=== PATIENT | male | born 1965 | race Caucasian/White ===

== ENCOUNTER 2017-05-05 10:15 | Inpatient (IN) | payer OTHER ==
[~2017-05-05] VITALS: Ht 188 cm; Wt 89.0 kg
[~2017-05-05 10:15] MED LIST: KLONOPIN 1MG TAB1 MG PO; ZOLOFT 100 MG100 MG PO
--- NOTE | 2017-05-05 10:32 | ED PSYCHIATRIC COMPLAINT ---
History of Present Illness General Chief Complaint: Psychiatric Related Complaint Stated Complaint: BIBA SI Source: patient, EMS Exam Limitations: no limitations Vital Signs & Intake/Output Vital Signs & Intake/Output Vital Signs Date Time Temp Pulse Resp B/P B/P Pulse O2 O2 Flow FiO2 Mean Ox Delivery Rate 05/06 1101 98.7 68 20 132/86 97 05/06 0840 98.8 90 20 134/92 97 05/06 0650 Room Air 05/06 0626 98.3 78 16 142/67 97 Room Air 05/06 0144 98.0 70 20 138/62 97 Room Air 05/06 0037 98.0 72 20 128/78 98 Room Air 05/05 2232 98.9 70 16 106/74 97 Room Air 05/05 1944 98.8 74 20 108/50 96 Room Air 05/05 1640 Room Air 05/05 1630 99.4 83 17 122/69 96 Room Air 05/05 1407 97.8 70 18 156/88 97 Room Air ED Intake and Output 05/06 0000 05/05 1200 Intake Total Output Total Balance Patient 205 lb Weight Weight Reported by Patient Measurement Method Reconcile Medications Sertraline HCl 50 MG TABLET 50 MG PO DAILY DEPRESSION (Reported) Triage Note: 52 Y/O MALE BIBA FOR EVAL OF ETOH. PER EMS, PT IS VOLUNTARY. PT ARRIVES A/O X 4, SPEAKING CLEARLY WITH NO DISTRESS OR DEFICITS NOTED. PT STATES HE WAS "AT [place] FOR THE FIRST TIME AND I HAD 6 BEERS THIS MORNING WHICH IS TOO MUCH FOR ME.". PT ADMITS "CHENCHO BEEN DEPRESSED". DENIES CURRENT SI BUT STATES HE HAS HAD SI THOUGHTS "IN THE RECENT PAST". DENIES HI. CALM AND COOPERATIVE ON ARRIVAL DENIES PHYSICAL COMPLAINTS. DENIES HX SEIZURES. PA STUDENT OVER TO EVAL SECURITY PAGED FOR WANDING. Triage Nurses Notes Reviewed? yes Onset: Gradual Duration: day(s): Timing: recent history Severity: moderate HPI: 52YO male with hx of depression BIBA to ED complaining of suicidal ideation beginning after getting out of [facility]. Patient states depression has been worsening, intermittent SI recently with plan of crashing his car. Patient recently got out of residential following 10 months sentence. Patient having difficulty adjusting to life outside of residential, states he wants to go back to [facility] however knows that he truely does not want to be incarcerated. Drank 6 beers prior to his visit with parol officer this morning, prior to that he has not had any alcohol for 10 months. Patient was a former alcoholic, hx of hospitalizations for alcohol withdrawal however no seizures or DTs that he is aware of. The patient denies headache, nausea, vomiting, AH/VH, HI, drug use. Patient takes Zoloft for depression, has been taking this medication as prescribed. (Christina Garcia) Allergies Coded Allergies: NO KNOWN ALLERGIES (05/05/17) (Enrique EARLY,Ayala) Past History Travel History Traveled to [place] past 21 day No Medical History Any Pertinent Medical History? 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 No (Christina Garcia) Review of Systems Review of Systems Constitutional: Reports: no symptoms. EENTM: Reports: no symptoms. Respiratory: Reports: no symptoms. Cardiovascular: Reports: no symptoms. GI: Reports: no symptoms. Genitourinary: Reports: no symptoms. Musculoskeletal: Reports: no symptoms. Skin: Reports: no symptoms. Neurological/Psychological: Reports: see HPI. Hematologic/Endocrine: Reports: no symptoms. Immunologic/Allergic: Reports: no symptoms. All Other Systems: Reviewed and Negative (Christina Garcia) Physical Exam Physical Exam General Appearance: well developed/nourished, no apparent distress, alert, awake Head: atraumatic, normal appearance Eyes: Bilateral: normal appearance. Ears, Nose, Throat: hearing grossly normal Neck: normal inspection, supple, full range of motion Respiratory: normal breath sounds, no respiratory distress, lungs clear Cardiovascular: regular rate/rhythm Gastrointestinal: normal bowel sounds, soft, non-tender, no organomegaly Extremities: normal range of motion Neurological/Psychiatric: awake, agitated, alert, normal mood/affect, calm Appearance/Memory/Insight: appropriate appearance, appropriate insight Behavoir/Eye Contact/Speech: cooperative, normal speech, good eye contact Thoughts/Hallucinations: normal thought pattern, no apparent hallucination Skin: intact, normal color, warm/dry SAD PERSONS SAD PERSONS Response Value Male Sex? yes 1 Age <19 or >45 years? yes 1 Depression/Hopelessness? yes 2 Excessive Ethanol/Drug Use? yes 1 Single//? yes 1 Social Support? has support 0 Stated Future Intent? yes 2 Total 8 SAD PERSONS Done? yes (Dot RAMÍREZ,Christina Buchanan) Progress Differential Diagnosis: drug intoxication, drug overdose, drug withdrawal, electrolyte abnormality, depression, suicidal ideation Plan of Care: Orders Procedure Date/time Status Regular Diet 05/06 D Active Lab Add-on Test 05/06 1150 Active Patient Data - inpatient psych 05/06 1144 Active Admit to inpatient psych 05/06 1144 Active Vital Signs 05/06 UNK Active Nursing Misc 05/06 UNK Active CIWA 05/06 UNK Active Alternative Nursing Therapy 05/06 UNK Active Activity/Ambulation 05/06 UNK Active TSH REFLEX 05/05 1053 Complete LIPID PANEL 05/05 1053 Complete GLYCOSYLATED HGB 05/05 1053 Complete Current Medications Sig/Bess Start time Last Medication Dose Stop Time Status Admin Benztropine Mesylate 1 MG Q6P PRN 05/06 1200 UNVr (Cogentin 1 MG Tablet) Benztropine Mesylate 1 MG Q6P PRN 05/06 1200 UNVr (Cogentin) Gabapentin 300 MG Q6P PRN 05/06 1200 UNVr (Neurontin) Haloperidol 5 MG Q6P PRN 05/06 1200 UNVr (Haldol) Haloperidol 5 MG Q6P PRN 05/06 1200 UNVr (Haldol) Lorazepam 2 MG Q6P PRN 05/06 1200 UNVr (Ativan) Lorazepam 2 MG Q2P PRN 05/06 1200 UNVr (Ativan) Lorazepam 1 MG Q2P PRN 05/06 1200 UNVr (Ativan) Folic Acid 1 MG DAILY 05/06 1147 UNVr (Folic Acid) 05/08 1001 Multivitamins 1 TAB DAILY 05/06 1147 UNVr (Theragran Vitamins) Thiamine HCl 100 MG DAILY 05/06 1147 UNVr (Vitamin B1) 05/08 1001 Acetaminophen 650 MG Q6P PRN 05/06 1145 UNVr (Tylenol) Al Hydroxide/Mg 30 ML Q4-6 PRN PRN 05/06 1145 UNVr Hydroxide (Maalox Plus) Magnesium Hydroxide 30 ML AT BEDTIME PRN 05/06 1145 UNVr (Milk Of Magnesia) Trazodone HCl 50 MG AT BEDTIME NEED.. 05/06 1145 UNVr (Desyrel) Sertraline HCl 50 MG DAILY 05/06 1000 UNVr 05/06 (Zoloft) 1007 The patient was started on Ativan 1mg PO per crisis team for anxiety. Patient signed out to Dr. Nunez pending bed search tomorrow morning. (Christina Garcia) 7:12 PM PATIENT TO REMAIN FOR OVERNIGHT PSYCH BEDSEARCH. TRAZADONE ORDERED. (Ayala Nunez MD) Hand-Off Endorsed To: Aayla Nunez MD Endorsed Time: 1946 Pending: other (bed search) (Christina Garcia) Hand-Off Endorsed To: Reji Reeves MD Endorsed Time: 2299 Pending: other (CRISIS BED SEARCH) (Ayala Nunez MD) Hand-Off Endorsed To: Hunter Be MD (Reji Reeves MD) Comments: 05/06/2017 9:03:19 AM patient signed out to me by Dr. 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 Patient is currently resting comfortably. ([place] EARLY,Hunter Figueroa) Departure Departure Disposition: STILL A PATIENT Condition: Stable Clinical Impression Primary Impression: Suicidal ideation Secondary Impressions: Alcohol abuse Depression Qualifiers: Depression Type: unspecified Qualified Code: F32.9 - Major depressive disorder, single episode, unspecified Referrals: Vivi Neumann MD (PCP/Family) Departure Forms: Customer Survey General Discharge Information (Christina Garcia) PA/PATIENT FINANCIAL COUNSELOR Co-Sign Statement Statement: ED Attending supervision documentation- [X] I saw and evaluated the patient. I have also reviewed all the pertinent lab results and diagnostic results. I agree with the findings and the plan of care as documented in the PA's/PATIENT FINANCIAL COUNSELOR's documentation. [X] I have reviewed the ED Record and agree with the PA's/PATIENT FINANCIAL COUNSELOR's documentation. [] Additions or exceptions (if any) to the PAs/PATIENT FINANCIAL COUNSELOR's note and plan are summarized below: [] (Ayala Nunez MD) PA/PATIENT FINANCIAL COUNSELOR Co-Sign Statement Statement: ED Attending supervision documentation- [] I saw and evaluated the patient. I have also reviewed all the pertinent lab results and diagnostic results. I agree with the findings and the plan of care as documented in the PA's/PATIENT FINANCIAL COUNSELOR's documentation. [x] I have reviewed the ED Record and agree with the PA's/PATIENT FINANCIAL COUNSELOR's documentation. [] Additions or exceptions (if any) to the PAs/PATIENT FINANCIAL COUNSELOR's note and plan are summarized below: [] (Leandro EARLY,Reji Luna)
[2017-05-05 11:08] LABS: ABSOLUTE BASOPHIL COUNT 0 /CUMM (0.0-0.2); ABSOLUTE EOSINOPHIL COUNT 0 /CUMM (0.0-0.7); ABSOLUTE GRANULOCYTE CT 3.6 /CUMM (1.4-6.5); ABSOLUTE LYMPH COUNT 1.4 /CUMM (1.2-3.4); ABSOLUTE MONOCYTE COUNT 0.6 /CUMM (0.10-0.60); BASOPHIL % 0.5 % (0.0-2.0); EOSINOPHIL % 0.2 % (0-5); HEMATOCRIT 38.6 % (42-52); MEAN CORPUSCULAR HGB 30.3 PG (27.0-31.0); MEAN CORPUSCULAR HGB CONC 33.7 G/DL (33.0-37.0); MEAN PLATELET VOLUME 7.3 FL (7.4-10.4); PLATELET COUNT 382 /CUMM (130-400); RBC DISTRIBUTION WIDTH 13.9 % (11.5-14.5); RED BLOOD CELL CT 4.29 /CUMM (4.70-6.10); WHITE BLOOD CELL COUNT 5.6 /CUMM (4.8-10.8)
--- NOTE | 2017-05-05 15:40 | ED PSY CRISIS COLLATERAL NOTE ---
Collateral Note Collateral Note Family/Inform/Ronda Contacts: Crisis attempted to make collateral phone contacts to patient's next of kin: Kristy Courtney, sister, at [phone]. Unable to contact Kristy. Phone goes straight to voicemail. The voicemail outgoing message is for the patient. It appears the patient and the sister share 1 phone number. Attempted to reach Mile Miller (friend) at [phone] but was unable to leave a message as the voicemail box is full.
[2017-05-05] MEDS ORDERED: SERTRALINE HCL50 MG PO (15:46)
--- NOTE | 2017-05-05 18:29 | ED PSYCH CRISIS CONSULTATION ---
See Addendum Crisis Consult Basic Assessment Date of Consult: 05/05/17 Responsible Person/Accompanied By: self/biba Insurance Authorization: Insurance #1: Insurance name: DAVID CARR Phone number: Policy number: [id number] Group number: Authorization number: ED Provider: Patient's ED Provider: Christina Garcia Primary Care Physician: Patient's PCP: Vivi Neumann MD PCP's Phone Number: Current Psychiatrist[facility] prescribed zoloft 50 mgs on Thursday Chief Complaint: Psychiatric Related Complaint Patient's Quote: I told my boat officer I want to kill myself Present Illness: pt is a 52 yo male biba to [place] ED this morning for depression and SI. Pt reports he had an intake with his boat officer this morning and drank 4-6 beers prior with intent that boat officer would violate him and send him back to [facility]. Pt reports he expressed SI to his boat officer so 911 was called. Pt reports he was released from incarceration on Mar 24 and was residing with his sister on transitional supervision until completion on May 01 when he was able to return to his apartment. Pt had been incarcerated for 10 months due to charges of harrassment, threatening, stalking and breach of peace. Pt reports prior incarceration for 4 months in 2004 for DUI. Pt reports hx of problem etoh use and detoxed in 2004. Pt reports sobriety [phone] but has relapsed since. pt reports today was his first etoh use since recent incarceration. Pt denies substance use. Pt reports no prior mental health tx hx. Pt reports since release in march he has been feeling depressed, lethargic at times confused, and most recently suicidal thoughts to drive his car into an embankment. Pt reports he was evaluated Thursday at [place] [facility] for depression but released with a plan to follow up with [facility] for outpatient tx services. Pt reports he and his sister for an urgent care clinic on the [facility] this and he was prescribed 50 mg of Zoloft which he states he started on Thursday. Pt rates his depression 10/27 and has suicidal thoughts but no current intent. Pt reports working 10 yrs for [employer] and has returned to work but has called out a few times recently because he feels unmotivated to get up. His sister reports on those days he has stayed asleep until early afternoon. Sister reports pt has recently been repeatedly stating "I can't go on"; "I can't do this anymore". Pt presents as alert, cooperative, soft spoken and OX3. Pt denies HI, AH/VH. Case reviewed with Dr Mcdonough with plan for pt to be held over night for further observation and likely bed search for inpatient psychiatric treatment in the morning. Plan reviewed with pt and he is in agreement. Patient's Address: [address] [place] [address] [place] [address] Other Phone Number: Who Do You Live With? Patient/Self Family/Informants Interviewed: collateral provided by pt sister Berna [phone]. She reports pt is depressed, made suicidal statements recently and is worried he has relapsed with etoh. She advocates for inpatient psychiatric admission. Allergies - Coded Allergies: NO KNOWN ALLERGIES (05/05/17) Current Medications - Scheduled Medications Sertraline HCl 50 MG TABLET 50 MG PO DAILY DEPRESSION #100 (Reported) Entered as Reported by Rebecca Lance on 05/05/17 1546 Laboratory Results: Laboratory Tests 05/05/17 1053: Anion Gap 17 H, Estimated GFR > 60, BUN/Creatinine Ratio 12.9, Glucose 96, Calcium 9.2, Total Bilirubin 0.3, AST 14 L, ALT 24, Alkaline Phosphatase 79, Total Protein 6.7, Albumin 4.0, Globulin 2.7, Albumin/Globulin Ratio 1.5, CBC w Diff NO MAN DIFF REQ, RBC 4.29 L, MCV 90.0, MCH 30.3, RDW 13.9, MPV 7.3 L, Gran % 64.0, Lymphocytes % 24.1, Monocytes % 11.2 H, Eosinophils % 0.2, Basophils % 0.5, Absolute Granulocytes 3.6, Absolute Lymphocytes 1.4, Absolute Monocytes 0.6, Absolute Eosinophils 0, Absolute Basophils 0, PUBS MCHC 33.7, Serum Alcohol 83.0 05/05/17 1048: Urine Opiates Screen < 100.00, Methadone Screen < 40, Barbiturate Screen < 60, Ur Phencyclidine Scrn < 6.00, Amphetamines Screen < 100, U Benzodiazepines Scrn < 85, Urine Cocaine Screen < 50, Urine Cannabis Screen < 5.00 Past History Past Medical History Neurological: NONE EENT: NONE Cardiovascular: NONE Respiratory: NONE Gastrointestinal: NONE Hepatic: NONE Renal: NONE Musculoskeletal: NONE Psychiatric: alcohol dependence, depression Endocrine: NONE Blood Disorders: NONE Cancer(s): NONE 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 Maintained etoh sobriety Psychiatric Treatment History Psych Treatment Psychiatric Treatment No Inpatient Treatment No Outpatient Treatment No Substance Use/Abuse History Drug Use/Abuse Substances Used/Abused Yes Substance Used/Abused Alcohol Last Used this morning How much used/taken 4-6 beers Substance Abuse Treatment Substance Abuse Treatment Past Substance Abuse TX Yes Inpatient Treatment Yes Outpatient Treatment No Reason for Treatment etoh detox sober 10 yrs.relapse 2014 Dates of Treatment 2004? Response to Treatment 10 yrs sober/AA relapse 2014 Comments: pt reports 4-6 beers this morning by appt with boat officer. Pt reports this was his first use since release from incarceration Mar 2017. He denies substance use. Current Mental Status Mental Status Orientation: Person, Place, Situation Affect: Flat, Hopeless, Sad Speech: WNL Neuro-vegetative: Anhedonia, Concentration Poor, Energy Decreased, Helpless, Hypersomnia, Loss of Interest Appearance Appearance- Dress/Hygiene: blue scrubs, groomed, good eye contact Behaviors Thought Process: WNL Thought Content: WNL Memory: WNL Insight: Fair SI/HI Risk Assessment Past Suicidal Ideation/Attempts Yes Current Suicidal Ideation/Att Yes Past Homicidal Ideation/Att: No Current Homicidal Ideation/Attempts No Degree of Intent: Thoughts/No Intent Danger To: Self Gravely Disabled: Poor Impulse Control, Poor Judgment Risk Factors: high anxiety/distress, SA/MH hospitalized, substance abuse, poor impulse control, lives alone, male Lethality Ratin PTSD Checklist PTSD Done? patient declined ED Management Sitter: Yes Restraints: No DSM5/PS Stressors/Medical Prob Diagnosis' (DSM 5, Stressors, Medical): Unspecified depression F32.9 Alcohol Use d/o F10.20 recent release from incarceration probation Current GAF: 25 Comments: Pt reports depression and SI with no plan past month since release from incarceration. Departure Disposition Psych Medical Clearance Date: 05/05/17 Medically Cleared at: 1630 Time Started: 1630 Time Ended: 171 Date Disposition Established: 05/05/17 Time Disposition Established: 1899 Plan for Disposition - Modality: Bed Search Rationale for Disposition: pt meet criteria for inpatient psychiatric treatment for mood stabilization and medication assessment. Pt will be a bed search due to no [facility] bed availability Referrals Vivi Neumann MD (PCP/Family)
[2017-05-06 12:43] VITALS: BP 132/86
[2017-05-06 14:41] VITALS: BP 134/77
[2017-05-06 18:21] VITALS: BP 140/70
--- NOTE | 2017-05-06 18:57 | IP CRISIS DIAG ASSESS PSYCH ---
Diagnostic Assessment Basic Assessment Insurance Authorization: Insurance #1: Insurance name: DAVID Deshpande [employer] Phone number: Policy number: [id number] Group number: Authorization number: [id number] Primary Care Physician: Patient's PCP: Vivi Neumann MD PCP's Phone Number: Patient's Quote: I told my home school liaison officer I want to kill myself Present Illness: pt is a 52 yo male biba to [place] ED this morning for depression and SI. Pt reports he had an intake with his home school liaison officer this morning and drank 4-6 beers prior with intent that home school liaison officer would violate him and send him back to [facility]. Pt reports he expressed SI to his home school liaison officer so 911 was called. Pt reports he was released from incarceration on Mar 24 and was residing with his sister on transitional supervision until completion on May 01 when he was able to return to his apartment. Pt had been incarcerated for 10 months due to charges of harrassment, threatening, stalking and breach of peace. Pt reports prior incarceration for 4 months in 2004 for DUI. Pt reports hx of problem etoh use and detoxed in 2004. Pt reports sobriety [phone] but has relapsed since. pt reports today was his first etoh use since recent incarceration. Pt denies substance use. Pt reports no prior mental health tx hx. Pt reports since release in march he has been feeling depressed, lethargic at times confused, and most recently suicidal thoughts to drive his car into an embankment. Pt reports he was evaluated Thursday at [place] ED for depression but released with a plan to follow up with [facility] for outpatient tx services. Pt reports he and his sister for an urgent care clinic on the [facility] this weekend and he was prescribed 50 mg of Zoloft which he states he started on Thursday. Pt rates his depression 10/27 and has suicidal thoughts but no current intent. Pt reports working 10 yrs for [employer] and has returned to work but has called out a few times recently because he feels unmotivated to get up. His sister reports on those days he has stayed asleep until early afternoon. Sister reports pt has recently been repeatedly stating "I can't go on"; "I can't do this anymore". Pt presents as alert, cooperative, soft spoken and OX3. Pt denies HI, AH/VH. Case reviewed with Dr Mcdonough with plan for pt to be held over night for further observation and likely bed search for inpatient psychiatric treatment in the morning. Plan reviewed with pt and he is in agreement. Patient's Address: [address] [place] [address] [place], [place] [id number] Other Phone Number: Who Do You Live With? Patient/Self Feel Safe Where You Live? Yes Feel Safe in Your Relationship Yes Marital Status: Do You Have Children? Yes Ages? 16 Primary Language? Persian Language(s) Spoken At Home: Persian Family/Informants Interviewed: collateral provided by pt sister Berna [phone]. She reports pt is depressed, made suicidal statements recently and is worried he has relapsed with etoh. She advocates for inpatient psychiatric admission. Allergies - Coded Allergies: NO KNOWN ALLERGIES (05/05/17) Current Medications - Scheduled Medications Sertraline HCl 50 MG TABLET 50 MG PO DAILY DEPRESSION #100 (Reported) Entered as Reported by Rebecca Lance on 05/05/17 5359 Consequences of Psych Med Use: pt has recently begun Zoloft 50mg Toxicology Screen Completed? Yes Results: positive Symptoms of Use: etoh Past History Past Surgical History Surgical History R HIP REPLACEMENT Abuse/Trauma History Trauma History/Current Trauma: Denies Psychosocial History Strengths/Capabilities: has worked for [employer] past 11yrs. Maintained etoh sobriety -2014 Psychiatric Treatment History Psych Treatment Psychiatric Treatment No Inpatient Treatment No Outpatient Treatment No Risk Factors: high anxiety/distress, SA/MH hospitalized, substance abuse, poor impulse control, lives alone, male Substance Use/Abuse History Drug Use/Abuse minimum 12mo Hx Substances Used/Abused Yes Substance Used/Abused Alcohol Last Used this morning How much used/taken 4-6 beers Substance Abuse Treatment Substance Abuse Treatment Past Substance Abuse TX Yes Inpatient Treatment Yes Outpatient Treatment No Reason for Treatment etoh detox sober 10 yrs.relapse 2014 Dates of Treatment 2004? Response to Treatment 10 yrs sober/AA relapse 2014 Education History Highest Level of Education: some college Preferred Learning Style: visual, auditory, experiential Current Mental Status Mental Status Orientation: Person, Place, Situation Affect: Flat, Hopeless, Sad Speech: WNL Neuro-vegetative: Anhedonia, Concentration Poor, Energy Decreased, Helpless, Hypersomnia, Loss of Interest Appearance Appearance- Dress/Hygiene: blue scrubs, groomed, good eye contact Behaviors Thought Process: WNL Thought Content: WNL Memory: WNL Insight: Fair SI/HI Risk Assessment - Minimum 6mo History- Past Suicidal Ideation/Attempts Yes Current Suicidal Ideation/Att Yes Past Homicidal Ideation/Att: No Current Homicidal Ideation/Attempts No Degree of Intent: Thoughts/No Intent Danger To: Self Gravely Disabled: Poor Impulse Control, Poor Judgment Risk Factors: high anxiety/distress, SA/MH hospitalized, substance abuse, poor impulse control, lives alone, male Lethality Ratin Needs/Init TX Plan/Goals: Psychiatric Evaluation Medication Assessment Individual, group and family tx coordinated discharge planning AUDIT-C Questionnaire: AUDIT-C Questionnaire: Response Value ETOH use in the past year 2-4 times/week 3 # drinks typical/day 7-9 3 6 or > drinks per occasion Weekly 3 Total 9 DSM5/PS Stressors/Medical Prob Diagnosis' (DSM 5, Stressors, Medical): Unspecified depression F32.9 Alcohol Use d/o F10.20 recent release from incarceration probation Current GAF: 25 Comments: Pt reports depression and SI with no plan past month since release from incarceration.
[2017-05-06 20:36] VITALS: BP 129/88
[2017-05-06] MEDS ORDERED: TRAZODONE HCL50 M1 PO (22:22)
[2017-05-06 23:33] VITALS: BP 107/65
[2017-05-07] VITALS (9 sets, daily range): BP systolic 115–144; BP diastolic 73–90
--- NOTE | 2017-05-07 12:51 | History & Physical ---
General Information and HPI MD Statement: I have seen and personally examined DAV TOVAR and documented this H&P. The patient is a 52 year old M who presented with a patient stated chief complaint of "I told my immigration services officer I to kill myself". Source of Information: patient Exam Limitations: no limitations History of Present Illness: 52-year-old white male admits to be depressed, does suicidal ideations began to getting out of [facility], worsening of his depression has been intermittent and he was in [facility] for about 10 months and he was supposed to see his mechanical engineering officer took 6 beers before the visit. After he told the mechanical engineering officer how he felt he was sent to the hospital for evaluation and he is taking the Zoloft as prescribed. Allergies/Medications Allergies: Coded Allergies: NO KNOWN ALLERGIES (05/05/17) Home Med list Sertraline HCl 50 MG TABLET 50 MG PO DAILY DEPRESSION (Reported) Trazodone HCl 50 MG TABLET 50 MG PO INSOMNIA (Reported) Compliance With Home Meds: GOOD Past History Travel History Traveled to [place] past 21 day No Medical History Neurological: NONE EENT: NONE Cardiovascular: NONE Respiratory: NONE Gastrointestinal: NONE Hepatic: NONE Renal: NONE Musculoskeletal: RIGHT HIP REPLACEMENT ANK Psychiatric: alcohol dependence, depression Endocrine: NONE Blood Disorders: NONE Cancer(s): NONE ELECTRICAL ENGINEERING DESIGNER/Reproductive: NONE History of MRSA: No History of VRE: No History of CDIFF: No Isolation History: Standard Surgical History Surgical History: non-contributory Past Family/Social History Psychosocial History Where do you live? Home Review of Systems Review of Systems Constitutional: Reports: see HPI. Exam & Diagnostic Data Last 24 Hrs of Vital Signs/I&O Vital Signs Date Time Temp Pulse Resp B/P B/P Pulse O2 O2 Flow FiO2 Mean Ox Delivery Rate 05/07 1204 77 124/74 05/07 1203 77 124/74 05/07 0808 98.4 74 115/73 05/07 0647 68 123/75 05/06 2333 98.6 63 107/65 05/06 2036 98.3 72 129/88 05/06 2010 97.9 86 18 138/72 96 Room Air 05/06 1821 98.5 88 18 140/70 05/06 1639 98.5 88 20 140/70 97 Room Air 05/06 1441 98.5 92 20 134/77 05/06 1434 98.5 92 20 134/77 95 Room Air Intake & Output 05/07 1600 05/07 0800 05/07 0000 Intake Total Output Total Balance Patient 196 lb Weight Physical Exam General Appearance Alert, Oriented X3, Cooperative, No Acute Distress Skin No Rashes, No Breakdown, No Significant Lesion HEENT PERRLA, EOMI Neck Supple, No JVD, No thryomegaly, +2 Carotid Pulse wo Bruit, No LAD Lymphatic Axillary nl, Cervical nl Cardiovascular Regular Rate, No Murmurs Lungs Clear to Auscultation, Normal Air Movement Abdomen Normal Bowel Sounds, Soft, No Tenderness, No Hepatospenomegaly, No Masses Neurological Exam Findings: Normal Gait, Normal Speech, Strength at 5/5 X4 Ext, Normal Tone, Sensation Intact, Cranial Nerves 3-12 NL, Reflexes 2+ Cranial Nerves II through XII: Intact Extremities No Cyanosis, No Edema, Normal Pulses Vascular Normal Pulses, Pulses Symmetrical Last 24 Hrs of Labs/Ankit: Laboratory Tests 05/05/17 1053: Anion Gap 17 H, Estimated GFR > 60, BUN/Creatinine Ratio 12.9, Glucose 96, Hemoglobin A1c 6.0 H, Calcium 9.2, Total Bilirubin 0.3, AST 14 L, ALT 24, Alkaline Phosphatase 79, Total Protein 6.7, Albumin 4.0, Globulin 2.7, Albumin/ Globulin Ratio 1.5, Triglycerides 83, Cholesterol 186, LDL Cholesterol, Calc 122 , HDL Cholesterol 48, Cholesterol/HDL Ratio 4, TSH &T3 &Free T4 Intrp 1.190, CBC w Diff NO MAN DIFF REQ, RBC 4.29 L, MCV 90.0, MCH 30.3, RDW 13.9, MPV 7.3 L, Gran % 64.0, Lymphocytes % 24.1, Monocytes % 11.2 H, Eosinophils % 0.2, Basophils % 0.5, Absolute Granulocytes 3.6, Absolute Lymphocytes 1.4, Absolute Monocytes 0.6, Absolute Eosinophils 0, Absolute Basophils 0, PUBS MCHC 33.7, Serum Alcohol 83.0 05/05/17 1048: Urine Opiates Screen < 100.00, Methadone Screen < 40, Barbiturate Screen < 60, Ur Phencyclidine Scrn < 6.00, Amphetamines Screen < 100, U Benzodiazepines Scrn < 85, Urine Cocaine Screen < 50, Urine Cannabis Screen < 5.00 Assessment/Plan As Ranked By This Provider Problem List: 1. Suicidal ideation 2. Depression Qualifiers Depression Type: unspecified Qualified Code: F32.9 - Major depressive disorder, single episode, unspecified 3. Alcohol abuse Miscellaneous Miscellaneous Documentation Attending Case Discussed With: Jae Robert MD Primary Care Physician: Vivi Neumann MD Patient sees these Specialists Psychiatry Level of Patient Care: [facility] Consults Needed: Consulting Specialty: Psychiatry Consulting Physician: Dr. Lewis Reason for Consult: depression suicidal ideations
--- NOTE | 2017-05-07 13:00 | CPS PROVIDER INIT ASMT PSYCH ---
Psychiatric Admission Propagator's Note Reviewed: Yes Patient Seen and Examined: Yes Identifying Information: Esau is a 52-year-old single white male who was brought in to [facility]s emergency department by ambulance reporting depression and thoughts of suicide Chief Complaint: The patient reported that he had an intake with his special technical operations officer the day prior to his arrival in the emergency department and that he drank 4-6 beers prior to meeting with the special technical operations officer reportedly with the intent of having him violate him on his probation and sending him back to group home. The patient reported thoughts of suicide to his special technical operations officer and the special technical operations officer called 911 Reaction to Hospitalization: The patient was admitted voluntarily History of Present Illness Onset of Illness: The patient was released from a ten-month incarceration on 03/24/2017, he was residing with his sister on a transitional basis he was supposed to go back to his apartment on May 01. He states that he had pre-paid his rent for the apartment, he was hesitant to further discuss his apartment situation, he reported worsening anxiety and worsening depression he denied any issues with the landlord or the neighbors or any risk of eviction Circumstances Leading to Admission: Increasing depression and thoughts of suicide Problem(s) Justifying Need for Admission: Reported thoughts of suicide to his special technical operations officer Other HPI: Patient reported that since his release from incarceration in March his been feeling depressed with low energy and low motivation and low drive. He also reported that more recently he was starting to have thoughts of suicide with ideas about driving his car into an embankment. He reported that he was evaluated for this past Thursday at [facility]'s emergency department for depression but he was released with a plan to follow up with [facility] for outpatient treatment. He reported that he went with his sister to an urgent care clinic on [facility] this past and he was prescribed 50 mg of Zoloft which she started to take last Thursday Past Psychiatric History Past Diagnosis(es)- if any: History of previous bouts of depression Past Precipitating Factors- if any: Unknown - Include inpatient and outpatient treatment Treatment History: The patient reported that he started having depression around 2004 and related that to his alcohol use. He also had anxiety. He denied any previous inpatient psychiatric treatment and denied any history of outpatient psychiatric treatment except more recently History of Suicide Attempts or Gestures Patient denied any history of suicide attempts. Substance Abuse History: The patient he reported that he had his first drink at the age of 15 he thinks that it may have become daily in his early 40s around 10 years ago he reported that he only had 1 previous detoxification. Allergies: Coded Allergies: NO KNOWN ALLERGIES (05/05/17) Home Med List: Sertraline 50 mg daily. He reported that in the past he was prescribed Klonopin. 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 The patient's mother also has history of depression reportedly after her diagnosis with breast cancer. One of her sisters has alcohol use disorder. Substance Use: Patient reported that only his sister has alcohol use disorder otherwise there is no family history of alcoholism Suicides: Patient denied any known family history of suicides Other Family History: Patient reported that he has 2 sisters, he is currently or was currently living with one of them in [facility] Social History Living Situation: He reportedly has his own apartment but was living with his sister and seems to be intent on going back to living with his sister after his discharge at least temporarily Significant Relationships (family/friends): Sister Education: The patient has a high school diploma. 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 He reportedly had a 4 month incarceration in 2004 for a DUI Healthly Behaviors Screening Tobacco Screening Tobacco Use from ED Docu: Never used - If tobacco counseling indicated - the following topics are required. - #1 Recognizing dangerous situations. - #2 Coping Skills. - #3 Basic information about quitting. Status of Tobacco Cessation Counseling: Not Applicable Cessation Med Status Not Applicable Alcohol Screening - ETOH screen POS if BAL >=80 or Audit-C>= M4/F3 Audit-C Score from Diag Assess: 9 Blood Alcohol Level: Laboratory Tests 05/05 1053 Toxicology Serum Alcohol (<10 MG/DL) 83.0 Alcohol Use Screening Results: Pos per Audit C &/or BAL - If ETOH counseling indicated - the following topics are required. - #1 Express concern about the patient's - drinking at unhealthy levels, include informing - of national norms for moderate drinking: - men <= 14 drinks/week, max 4 drinks/occasion - women <= 7 drinks/week, max 3 drinks/occasion - #2 Providing feedback, including linking alcohol to - negative physical effects (liver injury, hypertension) - negative emotional effects (relationship problems and - depression) - negative occupational consequences (reduced work - performance) - #3 Advising the patient to abstain from alcohol or - to drink below national norms for moderate drinking - (as listed above). Status of ETOH Use Counseling: #1, #2 AND #3 Completed. Metabolic Screening - Screen if on a Neuroleptic Medication - Metabolic screening should include: - Blood Pressure, BMI, Glucose or Hgb A1c, & a - Lipid profile from within the past 365 days. Metabolic Screening ([X]) Not Applicable, patient not on a neuroleptic. OR () Patient on a neuroleptic(s) . Enter below results for Hemoglobin A1C, and lipid panel if obtained during the last 365 days. BMI: 25.200 Blood Pressure: 124/74 Laboratory Results From [facility] (If applicable): Exam and Plan Mental Status Examination Ambulation Status: Steady gait Appearance: Unremarkable Attitude towards examiner: Calm and cooperative Psychomotor activity: Normal psychomotor activity Behavior: No bizarre or abnormal behaviors Quality of speech: Normal speech Affect: Constricted affect Mood: Depressed and anxious Suicidal Ideation: Passive thoughts of wishing Homicidal Ideation: Denied Hallucinations: Denied Paranoid/Delusional Material: Denied Difficulties with thought organization: No difficulties with thought organization Insight: Partial insight Judgment: Fair Orientation: Oriented to time place and person Cognition: Some difficulties with attention and concentration Memory Function: No significant memory impairment Estimate of intellectual functioning: Average Assets/Strengths Patient Identified Assets/Strengths: Supportive family Impression/Plan Impression and Plan: And 52-year-old single white male who was admitted to the inpatient psychiatric unit at [facility] for voicing thoughts of suicide to his special technical operations officer officer which he did his special technical operations officer to call 911. - Include all active medical diagnosis that require tx DSM 5 Diagnosis(es): Unspecified depressive disorder and Generalized anxiety disorder Alcohol use disorder - Initial Tx Plan for Active Psych & Medical Conditions Treatment Plan: Inpatient psychiatric care, detoxification from alcohol using the Seroquel protocol with regularly scheduled Ativan and as needed Ativan for breakthrough withdrawals Increase sertraline to 100 mg daily Nursing staff to do nursing assessments once a shift and provide the patient with education about his symptoms and medications and medications effects and side effects Group therapy Milieu therapy Social work to seek collateral information and set up aftercare plans The psychiatrist will see the patient on a daily basis for evaluations - Factors that would help patient function - in a less restrictive setting. Factors: Stable housing and abstinence from alcohol
--- NOTE | 2017-05-07 16:16 | SOCIAL WORKER PROG NOTE PSYCH ---
Social Work Progress Note Progress Note 10:10am This magazine writer met with patient. He shared that he came to the hospital due to increased depression and anxiety related to his alcohol use. He stated that he drank alcohol prior to going to his upscale security officer who later called 911 due to the patient's SI. Patient reported high anxiety at the time and this magazine writer assisted the patient in identifying strategies to manage the anxiety. In regard to treatment, the patient stated that he is not interested in inpatient treatment and would like to pursue IOP. He stated that he was referred to [facility], however, would like a program/clinic closer to home ([facility]). Patient was not willing to sign an KINA for his PO today. He denied SI at this time and agreed to inform staff should SI arise or he have other concerns. This magazine writer encouraged him to avoid isolative behaviors and participate in the groups.
--- NOTE | 2017-05-07 17:15 | SOCIAL WORKER SOCIAL HX PSYCH ---
Kathrine Kearney 05/07/17 1629: Social History Basic Assessment Insurance Authorization: Insurance #1: Insurance name: [facility] Phone number: Policy number: [id number] Group number: Authorization number: Curr Source of Income/Entitlements: No current source of income Primary Care Physician: Patient's PCP: Vivi Neumann MD PCP's Phone Number: Present Problem: Pt is a 52 year old male presenting with +SI and recent relapse with alcohol. Prior to admission to [facility] the pt was brought in to the ED by ambulance after his environmental protection officer called 911. Per pt report, he arrived at his first probation appointment under the influence and made suicidal statements. The pt reports telling his environmental protection officer that he drank 4 beers in hopes to get violated and return to senior care. The pt stated "I just don't want to do this anymore." The pt reports being released from incarceration in March 2017. The pt has been in senior care for the past 10 months due to threatening, stalking, harassment, and breach of peace. The pt reports additional incarcerations includin months in 2004 (DUI), 4 months in 2006 (violation of probation). The pt has been staying with his sister since his release and reports increase in depression and anxiety upon returning to his own apartment. The pt reports he does not feel marvin at home yet does feel safe while in senior care. The pt presents well groomed in street clothes with anxious mood and affect. The pt fidgeted with his hands throughout interview with this sign writer letterer or painter, had delayed speech, and poor eye contact. The pt was cooperative, oriented x3, and goal-oriented. The pt exhibits poor insight, judgement, and impulse control. The pt reports passive SI and denies plan or intent; the pt also notes no HI/AH/VH. Primary Language? Bengali Language(s) Spoken At Home: Bengali Living Situation Rents or Owns Home? rents (Not staying at apartment) Other Living Arrangement: Pt has been living with his sister since release from senior care in 04/05, pt incarcerated for 10mo. The pt has just been cleared to return to his apartment yet reports not feeling safe. Feel Safe Where You Are Living No Feel Safe in Relationships? Yes Current Medications - Scheduled Medications Sertraline HCl 50 MG TABLET 50 MG PO DAILY DEPRESSION #100 (Reported) Entered as Reported by Rebecca Lance on 05/05/17 1546 Miscellaneous Medications Trazodone HCl 50 MG TABLET 50 MG PO INSOMNIA (Reported) Entered as Reported by Shira Mata on 05/06/17 2222 Consequences of Psych Med Use: No recent use of any psychotropic medications. The pt reports taking Zoloft in the past, reports he is unsure of when this was. 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 DCF Involvement? No Relationship w/Mother: The pt reports his mother was very "kind" and "soft", stating "I liked that." The pt's mother is Relationship w/Father: The pt reports his father was "more magallon" but had a good relationship. Father is . Any Sibling(s)? Yes Sibling's Gender(s)/Age(s): female Sibling 1: (58), female Sibling 2: (56) Relationship w/Sibling(s): The pt reports having a good relationship with both of his sisters and identifies them as his biggest supports. Relationship w/Friends: The pt reports having positive peer relationships; reports having a childhood friend and a close female friend Family Psych/Sub Abuse/Add Hx: Pt denies family hx of SA or mental health Abuse/Trauma History Trauma History/Current Trauma: Denies Legal History Legal Guardian/Address/Phone: N/A Current Legal Status: on probation Pending Court Dates: Unknown Have you ever been arrested Yes Number of Arrests: 3 Hx of Juvenile Legal Charges? Yes If Yes: unknown Hx of Adult Legal Charges? Yes If Yes: felony List/Date Most Recent Lgl Chgs: 2005 DUI 2007 Violation of probation 2017 Stalking, Threatening, Breach of Peace, Harrasment Chgs/Dts/Incarcerations/Sentnc 2005 - incarcerated 4 mo. for DUI 2007 - Incarcerated 4 mo for violation of probration (driving with a suspended license) 2017 Incarcerated for 10 mo for threatening, stalking, breach of peace, and harrassment Civil Proceedings: N/A Domestic Relations Court: Threatening, stalking, harrassment - on probation Child Protective Serv Involvmnt n/a Manager Media Relations Unknown Psychosocial History Primary Support System: sibling(s) Strengths/Capabilities: has worked for [employer] past 11yrs. Maintained etoh sobriety -2014 Weaknesses: The pt has multiple incarcerations and limited support Physical Limitations (Interventions): n/a Last Physical: 2017 History of Seizures? No History of Blackouts? No (Only when drinking) ADL Limitations: n/a [place]/Social/Peer Relations Pt reports having positive peer relationships Meaningful Activities: The pt reports prior to depression he enjoyed fishing, hunting, and fishing Childhood Taoism: Jehovah'S Witness Current Yarsanism Affiliation: Jehovah'S Witness Is Spirituality Important to You? "yes" Patient's Ethnicity: Czech, Argentine, New Zealander, Togolese Cultural/Ethnic Issues: n/a Are There Developmental Issues? No Milestones Achieved: fine motor, gross motor Psychiatric Treatment History Psych Treatment Inpatient Treatment No Outpatient Treatment No Current Education Research Analyst: unknown Treatment of Prior Episodes: n/a Diagnosis: No reported diagnosis prior to ED Psychodynamic Issues: The pt has recently been released from senior care, limited support, and housing concerns Risk Factors: high anxiety/distress, SA/MH hospitalized, substance abuse, poor impulse control, lives alone, male Substance Use/Abuse History Drug Use/Abuse Substance Used/Abused Alcohol First Use 15 Last Used this morning How much used/taken 4-6 beers How often 6 beers For how long every other day prior to 2004 Route of use orally Have Had Periods of Sobriety? Yes Explain: 1521-1144 Relapse History? Yes Explain: Pt reports having "6 months here and 6 months there" Have You Ever Attended AA? Yes Do You Attend AA Currently? No Do You Have a Sponsor? No Symptoms of Use: etoh Substance Abuse Treatment Substance Abuse Treatment Inpatient Treatment Yes Outpatient Treatment No Reason for Treatment etoh detox sober 10 yrs.relapse 2014 Dates of Treatment 2004? Response to Treatment 10 yrs sober/AA relapse 2014 Sexual History Sexually Active No # of partners 0 Sexual Orientation Heterosexual Sexual Concerns: n/a Education History Highest Level of Education: high school/GED Highest Grade Completed: High school Vocational Year Completed: n/a Number of College Years: 0 College Degree/Major: n/a Other Degree(s): n/a Preferred Learning Style: visual, auditory, experiential HX of Learning Difficulties: None reported Barriers to Learning: reports "I think I had add" Special Communication Needs: None reported Employment History Employment Unemployed Vocation/Occupational Hx: Worked at [employer] No. of Jobs in Last 5 Years: 1 Attendance: Normal Performance: Good Comments: The pt reports prior to incarceration he worked at a [employer] and enjoyed it. Also, the pt notes that he did a good job with good attendance. History Have You Been in The ? No Current Mental Status Mental Status Orientation: Person, Place, Situation Affect: Anxious, Flat, Hopeless, Sad Speech: Delayed, Slurred Neuro-vegetative: Anhedonia, Concentration Poor, Energy Decreased, Helpless, Hypersomnia, Loss of Interest, Sleep Disturbance Appearance Appearance- Dress/Hygiene: jeans, long sleeve t-shirt, boots without laces, and appears well-groomed. Behaviors Thought Process: WNL Thought Content: WNL Memory: WNL Insight: Poor SI/HI Risk Assessment Past Suicidal Ideation/Attempts Yes Current Suicidal Ideation/Att Yes Past Homicidal Ideation/Att: No Current Homicidal Ideation/Attempts No Degree of Intent: Thoughts/No Intent Danger To: Self Gravely Disabled: Lack of Insight, Poor Impulse Control, Poor Judgment Risk Factors: High Anxiety/Distress, SA/MH Hospitalization(s), Isolated/no social suppor, Lives alone, Male, Poor impulse control, Substance Abuse Lethality Ratin - Conclusion and Recommendations for treatment - and discharge planning Summary: Pt admitted to [facility] to monitor for safety, mood stablization, and medication management. Sal Dean 05/08/17 1436: Social History Allergies - Coded Allergies: NO KNOWN ALLERGIES (NONE 05/08/17) Current Mental Status - Conclusion and Recommendations for treatment - and discharge planning
[2017-05-08] VITALS (8 sets, daily range): BP systolic 123–145; BP diastolic 75–86
--- NOTE | 2017-05-08 12:17 | CP SOUTH PROGRESS NOTE PSYCH ---
Psych (Inpt) Progress Note Progress Note Esau Courtney (: 1965) is a 52-year-old single White in CPS for depression and SI. Pt reports he had an intake with his probation office yesterday and drank 4-6 beers prior with intent that education officer would violate him and send him back to nursing home. Pt reports he expressed SI to his education officer who called 911. Pt reports he was released from a 10-month incarceration on Mar 24, 2017 and was residing with his sister Mental Status Examination: Esau was alert and oriented to time, place, and person. Activities Therapist showed us a watch he korin suggesting a possible cognitive deficit. Normal speech , neither pressured nor slurred. Constricted affect, depressed mood (severe by his estimation), no appreciable thought disorder, reported anxiety (moderate to severe by his estimation) Some sense of hopelessness, worthlessness, and asking self why is he on this earth, but no active suicide thoughts, urges, or plans He denied thoughts of violence or homicide, denied feeling paranoid, no delusions elicited Denied auditory and visual hallucinations, no gross memory deficits noted He denied obsessive thoughts or compulsions, insomnia but it seems that he did not know he could ask for a sleep aid Partial insight, questionable judgment Assessment: pt is a 52 yo single white male admitted to [facility] for suicidal thoughts and etoh detox, currently not experiencing suicidal thoughts and receiving lorazepam taper and multivitamins and CIWA q4h for etoh detox; depression and anxiety are still present. Diagnostic Impression: Unspecified depression Generalized anxiety Alcohol abuse disorder, moderate Recommendation/Plan: Inpatient psychiatric care 15-minute checks Continue sertraline 100mg daily Continue detoxification from alcohol using with regularly scheduled Ativan and as needed Ativan for breakthrough withdrawals Nursing staff to do nursing assessments once a shift and provide the patient with education about his symptoms and medications and medications effects and side effects Group therapy Milieu therapy Social work to seek collateral information and set up aftercare plans The psychiatrist will see the patient on a daily basis for evaluations
--- NOTE | 2017-05-08 13:26 | CP SOUTH PROGRESS NOTE PSYCH ---
Psych (Inpt) Progress Note Progress Note See today's earlier note for details Esau approached me at 13:15 hours and seemed very distressed He reported that he feels that he can't think, he seemed lost, feels trapped here and wants to leave but does not know what is he going to do if he leaves He reported that he feels that he can't take it anymore, "I feel like I wanna hang it up" (i.e. hanging himself) seems like agitated depression, high anxiety and also paranoia, feels that individuals on the unit (staff and patients) are staring at his face, he's been picking at his face assessment: in addition to depression, anxiety and alcohol withdrawal, the patient seems to be having thoughts disorder and paranoia as well Recommendation/Plan update since this morning: Ativan 2 mg x once now Continue 15-minute checks but will ask staff to check with him more frequently Cut back sertraline to 50 mg daily (in case it is contributing to his worsening) Add regularly scheduled Ativan at 1mg at 10AM, 4 Pm, and 2 mg at 10 PM Covering psychiatrist will re-evaluate medication plan tomorrow Milieu therapy Social work to seek collateral information and set up aftercare plans The psychiatrist will see the patient on a daily basis for evaluations
--- NOTE | 2017-05-08 16:58 | SOCIAL WORKER PROG NOTE PSYCH ---
See Addendum Social Work Progress Note Progress Note 1:15pm This quality analyst/technical writer met with patient. He presented as depressed and anxious, stating, "I don't want to go on." Patient stated that he had been given a prn just prior to meeting with this quality analyst/technical writer. Patient struggled to identify treatment programs that he was willing to attend, identifying difficulty with concentration. He remains ambivalent about signing an KINA for his PO and will address this with this quality analyst/technical writer later this afternoon when he hopes his anxiety level will be lower. Patient stated that he feels safe on this unit and agreed to inform staff should he feel unsafe or have other concerns. He was encouraged to avoid isolation as much as possible and attend groups. Patient approached this quality analyst/technical writer later in the afternoon. He requested to sign a KINA for his PO as well as [facility]. He reported decreased anxiety and appeared less anxious.
[2017-05-09] VITALS (9 sets, daily range): BP systolic 118–145; BP diastolic 70–84
--- NOTE | 2017-05-09 08:55 | CP SOUTH PROGRESS NOTE PSYCH ---
Psych (Inpt) Progress Note Progress Note Include the following elements, when applicable: Involvement in the active treatment of the patient with behavioral observations of the patient and the patient's response to the treatment. Review of the ongoing treatment process in the context of the treatment plan. Indication of how multi-disciplinary staff members are carrying out the treatment plan. Plans for future interventions and recommendations for revision of the treatment plan. Liaison with other physicians/providers. Progress Note: SUBJECTIVE: Patient reports having a good meeting yesterday with his 2 sisters , states he feels that he "doesn't know which way to go" about hous and outpatient treatment options. Patient reports experiencing only mild withdrawal , mild tremor, detoxing appropriately. Patient reports sleeping well with Ativan. Psychoeducation for benzodiazepines provided. Reviewed medications. Eating well. Denies any physical illness or other somatic complaints. No SI/HI /AVH/SIB. No side effects to medications. OBJECTIVE: Per nursing, pt did well overnight without any acute events. Pt remained in behavioral control, adherent with staff instructions and medications. VSS. Current Medications Sig/Bess Start time Last Medication Dose Route Stop Time Status Admin Acetaminophen 650 MG .STK-MED ONE 05/09 0005 DC PO 05/09 0006 Acetaminophen 650 MG Q6P PRN 05/06 1145 AC 05/09 PO 0005 Al Hydroxide/Mg 30 ML Q4-6 PRN PRN 05/06 1145 AC Hydroxide PO Benztropine Mesylate 1 MG Q6P PRN 05/06 1200 AC PO Benztropine Mesylate 1 MG Q6P PRN 05/06 1200 AC IM Chlorpromazine 100 MG AT BEDTIME 05/08 2200 CAN PO Chlorpromazine 50 MG Q6P PRN 05/08 1330 AC 05/09 PO 0005 Folic Acid 1 MG DAILY 05/06 1147 DC 05/08 PO 05/08 1001 0800 Gabapentin 600 MG Q4 HRS NEEDED PRN 05/08 0845 DC PO Haloperidol 5 MG Q6P PRN 05/06 1200 AC PO Haloperidol 5 MG Q6P PRN 05/06 1200 AC IM Lorazepam 2 MG 2200 05/08 2200 AC 05/08 PO 2143 Lorazepam 1 MG 1000,1600 05/08 1600 AC 05/08 PO 1706 Lorazepam 2 MG ONCE ONE 05/08 1315 DC 05/08 PO 05/08 1316 1314 Lorazepam 2 MG Q6P PRN 05/06 1200 AC IM Lorazepam 2 MG Q2P PRN 05/06 1200 AC PO Lorazepam 1 MG Q2P PRN 05/06 1200 AC 05/08 PO 2004 Magnesium Hydroxide 30 ML AT BEDTIME PRN 05/06 1145 AC PO Multivitamins 1 TAB DAILY 05/06 1147 AC 05/09 PO 0821 Sertraline HCl 50 MG DAILY 05/09 1000 AC 05/09 PO 0821 Sertraline HCl 100 MG DAILY 05/08 1000 DC 05/08 PO 0800 Thiamine HCl 100 MG DAILY 05/06 1147 DC 05/08 PO 05/08 1001 0800 Trazodone HCl 50 MG AT BEDTIME NEED.. 05/06 1145 DC PO Vital Signs Date Time Temp Pulse Resp B/P B/P Pulse O2 O2 Flow FiO2 Mean Ox Delivery Rate 05/09 0837 97.1 98 142/83 05/09 0836 97.1 98 142/83 05/08 2004 108 05/08 195 99.2 99 126/75 05/08 195 99.2 99 126/75 05/08 1624 99 123/81 05/08 1623 99 123/81 05/08 1320 76 139/86 05/08 1258 76 139/86 MSE: GENERAL: Alert and oriented x3, good eye contact, well-groomed, no apparent distress SPEECH: Moderate rate and volume, normal prosody, fluent MOTOR: No tics, mild tremor, no stereotypy, or other abnormal movements MOOD: "Doing OK" AFFECT: a bit worried, mood congruent, mildly constricted range, non-labile, well related THOUGHT PROCESS: Logical, linear and goal-directed THOUGHT CONTENT: No SI/SI/AVH/SIB, no apparent grandiosity, paranoia, delusions , obsessions, ruminations COGNITION: No apparent deficit in attention, memory or concentration JUDGMENT: fair INSIGHT: fair ASSESSMENT: 52 yo WM with depression, anxiety and alcohol withdrawal, thoughts disorder and paranoia. Today, patient appears well related, mood improved, thinking more clearly with only mild signs of withdrawal. PLAN: -maintain safety, vs tid, q15min checks -continue meds, feeling better after sertraline reduced to 50 to slow increase -continue ativan taper -pt discussing dispo plan with sisters -pt would like to discuss outpatient med plan with MD on Thursday -continue plan
[2017-05-10] VITALS (8 sets, daily range): BP systolic 111–129; BP diastolic 4–75
--- NOTE | 2017-05-10 02:09 | CP SOUTH PROGRESS NOTE PSYCH ---
Psych (Inpt) Progress Note Progress Note Include the following elements, when applicable: Involvement in the active treatment of the patient with behavioral observations of the patient and the patient's response to the treatment. Review of the ongoing treatment process in the context of the treatment plan. Indication of how multi-disciplinary staff members are carrying out the treatment plan. Plans for future interventions and recommendations for revision of the treatment plan. Liaison with other physicians/providers. Progress Note: SUBJECTIVE: Patient reports that he is still a bit depressed today with a vague passive SI without plan, no HI/AVH/SIB. Feels that he is mildly withdrawing still but doing well. Sleeping and eating well without much appetite. Patient requests going back up on sertraline to 100 mg, feels like his body is adjusted to the lower dose and ready to up titrate, ordered. Feels that he is getting fleeting thoughts through his head with difficulty concentrating and he feels the sertraline will help with that. Denies any physical illness or other somatic complaints. No SI/HI/AVH/SIB. No side effects to medications. OBJECTIVE: Per nursing, pt did well overnight without any acute events. Pt remained in behavioral control, adherent with staff instructions and medications. VSS. Current Medications Sig/Bess Start time Last Medication Dose Route Stop Time Status Admin Acetaminophen 650 MG Q6P PRN 05/06 1145 AC 05/09 PO 0005 Al Hydroxide/Mg 30 ML Q4-6 PRN PRN 05/06 1145 AC Hydroxide PO Benztropine Mesylate 1 MG Q6P PRN 05/06 1200 AC PO Benztropine Mesylate 1 MG Q6P PRN 05/06 1200 AC IM Chlorpromazine 50 MG Q6P PRN 05/08 1330 AC 05/09 PO 0005 Haloperidol 5 MG Q6P PRN 05/06 1200 AC PO Haloperidol 5 MG Q6P PRN 05/06 1200 AC IM Lorazepam 2 MG 2200 05/08 2200 AC 05/09 PO 2221 Lorazepam 1 MG 1000,1600 05/08 1600 AC 05/10 PO 0930 Lorazepam 2 MG Q6P PRN 05/06 1200 AC IM Lorazepam 2 MG Q2P PRN 05/06 1200 AC PO Lorazepam 1 MG Q2P PRN 05/06 1200 AC 05/08 PO 2005 Magnesium Hydroxide 30 ML AT BEDTIME PRN 05/06 1145 AC PO Multivitamins 1 TAB DAILY 05/06 1147 AC 05/10 PO 0759 Sertraline HCl 50 MG DAILY 05/09 1000 AC 05/10 PO 0758 Vital Signs Date Time Temp Pulse Resp B/P B/P Pulse O2 O2 Flow FiO2 Mean Ox Delivery Rate 05/10 1202 89 116/75 05/10 1201 89 116/75 05/10 0822 98.0 90 125/72 05/10 0816 98.0 90 125/72 05/09 2325 87 145/83 05/09 1957 98.6 99 118/70 05/09 1948 98.6 99 118/70 05/09 1603 89 135/84 05/09 1554 89 135/84 MSE: GENERAL: Alert and oriented x3, anxious appearing, good eye contact, well- groomed, no apparent distress SPEECH: Moderate rate and volume, normal prosody, fluent MOTOR: No tics, mild tremor but improved, no stereotypy, or other abnormal movements MOOD: "A little depressed" AFFECT: worried, mood congruent, mildly constricted range, non-labile, well related THOUGHT PROCESS: Logical, linear and goal-directed THOUGHT CONTENT: No SI/SI/AVH/SIB, no apparent grandiosity, paranoia, delusions , obsessions, ruminations COGNITION: No apparent deficit in attention, memory or concentration JUDGMENT: fair INSIGHT: fair ASSESSMENT: 52 yo WM with depression, anxiety and alcohol withdrawal, thoughts disorder and paranoia. Today, patient appears a little bit more down than yesterday, but with less signs of withdrawal. Requesting increase in sertraline. PLAN: -maintain safety, vs tid, q15min checks -continue meds, increasing sertraline back to 100 mg -continue ativan taper -pt discussing dispo plan with sisters -pt would like to discuss outpatient med plan with MD on Thursday, would like non- addictive sleep aid at dc -continue plan
[2017-05-11] VITALS (8 sets, daily range): BP systolic 102–129; BP diastolic 70–77
--- NOTE | 2017-05-11 12:26 | CP SOUTH PROGRESS NOTE PSYCH ---
Psych (Inpt) Progress Note Progress Note Patient reports that he is still a bit depressed with vague passive SI without plan, no HI, no hallucinations, sleeping and eating well without much appetite. No SI, remained in behavioral control, adherent with staff instructions and medications, Alert and oriented x3, anxious appearing, good eye contact, well- groomed, no apparent distress, no tics, mild tremor but improved, no stereotypy, or other abnormal movements, mood has been "a little depressed" congruent, mildly constricted range, non-labile, well related, Logical, linear and goal- directed, no apparent grandiosity, paranoia, delusions, obsessions, ruminations, No apparent deficit in attention, memory or concentration ASSESSMENT: 52 yo WM with depression, anxiety and alcohol withdrawal, thoughts disorder and paranoia. Today, patient appears a little bit more down than yesterday, but with less signs of withdrawal. PLAN: -maintain safety, vs tid, Continue 15min checks -continue sertraline 100 mg Reduce Ativan to 1.5 mg at bedtime MD on Thursday, continue Group and milieu therapy
--- NOTE | 2017-05-11 17:36 | SOCIAL WORKER PROG NOTE PSYCH ---
Social Work Progress Note Progress Note 12:50pm This rfp writer met with patient. He signed an KINA for his sisters and was agreeable to scheduling a family meeting. Patient appeared ambivalent to IOP due to the time committment, but will to consider it and would like to discuss it further with his sister. He reported a decrease in his anxiety and denied SI today. He stated that his decision on where he will go for IOP/OP will be determined by where he will be living.
--- NOTE | 2017-05-11 18:06 | SOCIAL WORKER PROG NOTE PSYCH ---
Social Work Progress Note Progress Note Completed [facility] online review for cont. stay. SW check website for next review date pls.
[2017-05-12 07:41] VITALS: BP 117/75
[2017-05-12 07:42] VITALS: BP 117/75
[2017-05-12 12:13] VITALS: BP 132/77
--- NOTE | 2017-05-12 12:31 | CP SOUTH PROGRESS NOTE PSYCH ---
Psych (Inpt) Progress Note Progress Note Nursing Staff, Group Therapists, Social Work Staff, and Psychiatrist discussed [facility] treatment and progress Esau remains depressed. However, he seemed to be less distraught and less hopeless about his lifes circumstances. Despite the vague thoughts about not wanting to be on [place], there are no thoughts of actively committing suicide Esau denied violent thoughts or thoughts of homicide. He denied hallucinations. He remains in behavioral control, alert and oriented x3, anxious affect Esau showed good eye contact, no abnormal movements, There are no delusions and no thought disorder no apparent grandiosity or paranoia ASSESSMENT: Esau is a 52 yo WM with depression, anxiety and alcohol withdrawal, thoughts disorder and paranoia. Today, patient appears a little bit more down than yesterday, but with less signs of withdrawal. PLAN Update; Continue inpatient psychiatric care to maintain safety, Continue 15min checks continue sertraline 100 mg Continue Ativan to 1.5 mg at bedtime for tonight, will re-evaluate for reduction tomorrow Psychiatrist to continue daily evaluations continue Group and milieu therapy
[2017-05-12 15:49] VITALS: BP 124/71
--- NOTE | 2017-05-12 16:30 | SOCIAL WORKER PROG NOTE PSYCH ---
Social Work Progress Note Progress Note This loan underwriter met with patient. He described his mood as feeling "overwhelmed" triggered by thinking about legal and financial responsibilities. He stated that he has been feeling helpless and noticing decreased motivation to manage/ address his responsibilites. Patient reports some decreased anxiety, which is observed by this loan underwriter. Patient denied SI/HI/AH/VH. He requested that this loan underwriter follow up with [facility] and his philanthropy officer. 2:13pm This loan underwriter returned a call received by the patient's PO (Misbah Paz). This loan underwriter left vm with call back number. 2:16pm This loan underwriter contact Tobi JjAbdifatah at the [facility]. She stated that she was not allowed to speak with this loan underwriter any matters regarding clients in her program would need to be addressed via the referral source. This loan underwriter informed patient of this, who stated that his referral source is probation. He was informed of the vm left for his philanthropy officer. Patient stated that he would try to reach [facility]. 2:18 This loan underwriter spoke with patient's sister Nadya and a family meeting has been scheduled for 2:30pm on 05/13/17. This loan underwriter also spoke with patient's sister, Rui, who will attend the meeting by phone.
[2017-05-12 19:43] VITALS: BP 127/73
[2017-05-13 07:52] VITALS: BP 133/76
--- NOTE | 2017-05-13 12:12 | CP SOUTH PROGRESS NOTE PSYCH ---
Psych (Inpt) Progress Note Progress Note Nursing Staff, Group Therapists, Social Work Staff, and Psychiatrist discussed [facility] treatment and progress Esau remains depressed (with relative-and modest-at best-improvement in mood). However, anxiety seems definitely less problematic and he seemed distraught. He seemed [id number] more hopeful today, and denied wishing or thinking of suicide in the past 24 hours. Esau denied violent thoughts or thoughts of homicide. He denied hallucinations. He remains in behavioral control. He was alert and oriented, showed good eye contact, no abnormal movements, and no bizarre behaviors. There are no delusions and no thought disorder Assessment: Esau is a 52 yo WM with depression, anxiety and alcohol withdrawal, thoughts disorder and paranoia. Today, patient appears a little bit more down than yesterday, but with less signs of withdrawal. Treatment Plan Update: Continue inpatient psychiatric care to maintain safety Continue 15min checks continue sertraline 100 mg Reduce Ativan to 1 mg at bedtime for tonight, Psychiatrist to continue daily evaluations continue Group and milieu therapy Social work staff to continue working on a safe discharge plan
[2017-05-13 12:39] VITALS: BP 137/79
--- NOTE | 2017-05-13 15:33 | SOCIAL WORKER PROG NOTE PSYCH ---
Social Work Progress Note Progress Note Completed [facility] online review for continued stay. SW check web for next review. [employer] [employer] insurance reviewer suggested Naltrexone for patient. Informed Dr. Joseph of her suggestion.
[2017-05-13 15:57] VITALS: BP 129/82
--- NOTE | 2017-05-13 17:38 | SOCIAL WORKER PROG NOTE PSYCH ---
See Addendum Social Work Progress Note Progress Note 3pm Dr. Robert and this editorial writer met with the patient, his sister (Nadya), her , German and his sister Rui (who attended by phone) for a family meeting. They shared that the patient had experienced depression in the past, however, this was much worse than previous episodes. Dr. Robert provided education on "agitated depression" and the family was informed that continued inpatient stay is indicated. Potential discharge plans were discussed regarding location. Patient is hesistant about returning home, in part due to being alone , however, seemed guarded as to the full reason why. It appears that it is likely that the patient will be returning to his home in [place]. He therefore, prefers to attend [facility] due to location. He also expressed interest in case management and will be referred to Care for this. 5:30pm This editorial writer met with patient to follow up regarding Care and case management. He expressed feeling very overwhelmed and did not want to discuss this at this time or sign an KINA. Patient was agreeable to re-visiting this at another time. A referral will therefore not be made at this time.
[2017-05-13 19:56] VITALS: BP 140/81
[2017-05-14 07:48] VITALS: BP 133/79
--- NOTE | 2017-05-14 11:18 | CP SOUTH PROGRESS NOTE PSYCH ---
Psych (Inpt) Progress Note Progress Note Nursing Staff (Yaquelin Hawley, RICH), Group and Activity Therapists, Social Work Staff (Yanira Reza, TRUCKLOAD OWNER OPERATOR & LOBITO RamosW), and Psychiatrist discussed the patient's treatment and progress I interviewed Esau in my office. He was clean-shaven today (first time Margaret seen that since his admission). The patient said he remains depressed and anxious. He reported that he is still feeling hopeless and helpless; he reported that he feels that his life is currently worthless Overwhelmed with worries: currently have ZERO income, worried about finding a job, keeping his apartment, burdening his sisters, transportation, making decisions, probation, etc. He reported that thoughts of wishing still float in and out of his mind, he also acknowledged that thoughts of suicide still come and go, usually able to dismiss them within a couple of minutes, denied violent thoughts or thoughts of homicide. He denied hallucinations. He remains in behavioral control. He was alert and oriented, showed good eye contact, no abnormal movements, and no bizarre behaviors. There were no specific delusions He described what seemed like racing thoughts (mostly worries) and, during conversation, will have an occasional thought block Assessment: Esau is a 52-year-old single White male admitted to [facility] with depression, anxiety and recent alcohol use. 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 Treatment Plan Update: Reduce Ativan to 0.5 mg at bedtime for tonight, Add Thorazine 75 at bedtime for sleep (Esau said he did not sleep well last night, possibly due to the ongoing taper in his lorazepam dose Increase PRN Thorazine to 75 mg as needed for anxiety (Esau tried 50 mg yesterday after the stressful family meeting we had, he said he did not feel much benefit and did not experience any side effects) Continue inpatient psychiatric care to maintain safety Continue 15min checks Continue sertraline 100 mg Psychiatrist to continue daily evaluations Continue Group and milieu therapy Social work staff to continue working on a safe discharge plan
[2017-05-14 12:05] VITALS: BP 129/79
[2017-05-14 15:52] VITALS: BP 105/68
--- NOTE | 2017-05-14 16:59 | SOCIAL WORKER PROG NOTE PSYCH ---
Social Work Progress Note Progress Note 11am This blurb writer met with patient. He signed the KINA for [facility] (regarding case management services), however, later in this meeting requested to wait before sending a referral. Patient presented as anxious and continues to struggle with making decisions. He denied SI. He agreed to re-visit the case management option tomorrow.
[2017-05-14 19:53] VITALS: BP 127/79
[2017-05-15 08:00] VITALS: BP 124/73
--- NOTE | 2017-05-15 11:00 | SOCIAL WORKER PROG NOTE PSYCH ---
Social Work Progress Note Progress Note [facility] referral completed. Check web for next review date.
[2017-05-15 12:09] VITALS: BP 138/83
--- NOTE | 2017-05-15 13:10 | CP SOUTH PROGRESS NOTE PSYCH ---
See Addendum Psych (Inpt) Progress Note Progress Note Nursing Staff, Group and Activity Therapists, Social Work Staff (Yanira Reza, ROUTE SALES PERSON & Terrie Brandt, ROUTE SALES PERSON), and Psychiatrist discussed the patient's treatment and progress Esau reported that he disliked the way he feels on Thorazine, unable to describe in word, just general sense of feeling weird on it, still feeling unpleasant mood and anxiety with an urge to just leave, but does not know what to do after that still feeling hopeless and helpless; he reported that he feels that his life is currently worthless, overwhelmed with worries: currently have ZERO income, worried about finding a job, keeping his apartment, burdening his sisters, transportation, making decisions, probation, etc. thoughts of wishing and thoughts of suicide still come and go, usually able to dismiss them within a couple of minutes, denied violent thoughts or thoughts of homicide. He denied hallucinations. He remains in behavioral control. He was alert and oriented, showed good eye contact, no abnormal movements, and no bizarre behaviors. There were no specific delusions, He described what seemed like racing thoughts (mostly worries) and, during conversation, will have an occasional thought block Assessment: Esau is a 52-year-old single White male admitted to [facility] with depression, anxiety and recent alcohol use. Esau reported that he mood and anxiety are a tiny bit worse today, he believes it is Thorazine Treatment Plan Update: D/C Ativan D/C Thorazine Gabapentin 600 mg Q 6 hours for anxiety and/or insomnia Trazodone 50 mg at bedtime PRN Insomnia Continue inpatient psychiatric care to maintain safety Continue 15min checks Continue sertraline 100 mg Psychiatrist to continue daily evaluations Continue Group and milieu therapy Social work staff to continue working on a safe discharge plan
[2017-05-15 15:49] VITALS: BP 132/75
--- NOTE | 2017-05-15 16:34 | SOCIAL WORKER PROG NOTE PSYCH ---
Social Work Progress Note Progress Note 3:25pm This literary writer met with patient. He described his anxiety at a 9.5/10 and stated, "I just don't know how I can do this." He was unable to specify "this". Patient stated that he had attended some groups, but was not attending the current group as he does not like art therapy. Another patient encouraged this patient to go to the group, which he did. Patient joined a [employer] game, despite stating that he did not know how to play. He appeared willing to learn. 3:50pm This literary writer returned patient's PO's call (Crispin Paz, ). This literary writer first tried the main number and was informed that the PO had stepped out and would be back shortly after. This literary writer left a with call back number. This literary writer made a second attempt at 4:05pm, however, was informed that his PO had stepped out again and would not be returning. This literary writer was later informed by the [facility] community theater actor that the patient's PO had come to [facility] to meet with the patient. The patient provided a business card for his PO. PO requested "admittance paperwork."
[2017-05-15 19:47] VITALS: BP 145/79
[2017-05-16 08:03] VITALS: BP 140/86
[2017-05-16 12:02] VITALS: BP 139/82
[2017-05-16 16:26] VITALS: BP 128/77
[2017-05-16 20:07] VITALS: BP 112/68
[2017-05-17 07:51] VITALS: BP 125/81
[2017-05-17 12:04] VITALS: BP 116/73
[2017-05-17 16:00] VITALS: BP 132/79
[2017-05-17 19:46] VITALS: BP 141/82
[2017-05-18 07:41] VITALS: BP 143/84
[2017-05-18 12:21] VITALS: BP 122/85
--- NOTE | 2017-05-18 13:22 | CP SOUTH PROGRESS NOTE PSYCH ---
Psych (Inpt) Progress Note Progress Note I reviewed the notes of Dr. Mery Schneider MD (the covering psychiatrist for the weekend of May 16 & 2017). The Nursing staff, group therapists, social work staff, and psychiatrist discussed the patients progress, and reviewed the patients treatment/care plan in the team meeting MSE: Nursing report mentioned that Esau was observed- over the weekend-- staring into space or at the wall for long periods. During interview today, Esau was guilt-ridden about occupying a bed for 13 days. He remains depressed with minor (and slow) improvements noted (e.g. sleep, energy level, and outlook on life slightly better). The patient showed reduced psychomotor activity with episodic increase in psychomotor activity when anxious. There were no tics or tremors, reduced speech normal. Constricted affect is full and reactive, Esau is-- for the most partcoherent, however he seems to have a subtle thought disorder with occasional blocks and possible catatonia. No florid psychosis (i.e. no hallucinations, no delusions, and not loose/incoherent or disorganized) He denies thoughts to harm self or anyone else. Insight and judgment are both questionable. Assessment: Esau is a 52-year-old single White male who was admitted to [facility] with depression, anxiety and recent alcohol use. Slowly improving, did not find gabapentin helpful with anxiety 9in fact, he believes that it may have made it worse) (?!) Treatment Plan Update: D/C Gabapentin Start propranolol 20 mg Q 4 hours for anxiety Trazodone 50 mg at bedtime PRN Insomnia Continue inpatient psychiatric care to maintain safety/Continue 15min checks Continue sertraline 100 mg daily Nursing: assessments, VS, education Psychiatrist: continue daily evaluations Continue Group and milieu therapy Social work staff to continue working on a safe discharge plan
[2017-05-18 16:06] VITALS: BP 123/70
--- NOTE | 2017-05-18 17:29 | SOCIAL WORKER PROG NOTE PSYCH ---
Social Work Progress Note Progress Note This journalists and other writers met with patient. He continues to report feeling anxious, which was visible to this journalists and other writers, and unable to make decisions. Patient stated that he feels unsafe on this unit at times as he worries that other patients will not want him here and retaliate due to "not having real problems and stealing a bed. " Patient and this journalists and other writers discussed ways to challenge his thinking, to which he also expressed some interest in discharge planning. However, he was unable to decide whether he would like for a referral to be made to [facility]'s case management services. This journalists and other writers had received a business card from the patient's cavalry officer, Misbah Paz, requesting "admittance paperwork." A vm was left for Siva Paz requesting clarification on what he is looking for. A call back number was provided.
[2017-05-19 08:00] VITALS: BP 110/70
--- NOTE | 2017-05-19 11:42 | SOCIAL WORKER PROG NOTE PSYCH ---
Social Work Progress Note Progress Note DAV TOVAR [id number] 1965 DAV CAMPJoshua [id number] Pended Authorization # Client Authorization # Type of Request [id number] CONCURRENT Date of Admission/ Start of Services Requested From Submission Date 05/06/2017 05/19/2017 05/19/2017
[2017-05-19 12:11] VITALS: BP 109/68
--- NOTE | 2017-05-19 12:17 | CP SOUTH PROGRESS NOTE PSYCH ---
Psych (Inpt) Progress Note Progress Note The treatment team (Nursing, group therapists, social work, and psychiatrist) discussed the patients progress, and reviewed the patients treatment/care plan in the team meeting remains depressed with minor (and slow) improvement, reported poor sleep (did not ask for Trazodone), reduced psychomotor activity with episodic increase in psychomotor activity when anxious/restless, no tics or tremors, reduced speech, constricted affect, Esau is-- for the most part--coherent, however, I suspect a subtle thought disorder (with occasional thought blocks, possible catatonia, mild paranoia). no hallucinations, no specific delusions, despite subtle thought disorder, Esau is not loose, incoherent or disorganized, denies thoughts of suicide, or violence /homicide Summary and Risk Assessment: Esau is a 52-year-old single White male who was admitted to [facility] on May 06, 2017 after he arrived in the ED on May 05, 2017 by ambulance from his probation officers office. His animal control officer called for an ambulance after Esau voiced thoughts of suicide. Risk Factors for Suicide and/or violence/homicide: Recent thoughts of suicide, multiple psychosocial stressors Treatment Plan Update: Continue inpatient psychiatric care: maintain safety/15min checks; Nursing assessments, VS, education; Psychiatrist to continue daily evaluations; Group and milieu therapy; Social work staff to continue working on a safe discharge D/C Propranolol Hydroxyzine 50 mg as needed for anxiety Change Trazodone 50 mg at bedtime regularly scheduled Continue sertraline 100 mg daily
[2017-05-19 15:51] VITALS: BP 145/84
--- NOTE | 2017-05-19 17:41 | SOCIAL WORKER PROG NOTE PSYCH ---
Social Work Progress Note Progress Note 1:40pm This scientific technical writer met with patient. Care case management was discussed as well as [facility]. He expressed possible interest in discharge on Thursday and feels that the Zoloft is working. He reports ongoing anxiety, which impacts his ability to attend groups, ultimately resulting in not attending groups. Patient was encouraged to discuss interest in discharge with Dr. Robert as well. Patient denied SI/HI/AH/VH. 3:40pm This scientific technical writer returned call from Génesis Estrada at [facility] interest of clarification regarding medications. A vm was left with call back number.
[2017-05-19 20:08] VITALS: BP 128/82
[2017-05-20 08:54] VITALS: BP 124/84
--- NOTE | 2017-05-20 12:03 | CP SOUTH PROGRESS NOTE PSYCH ---
Psych (Inpt) Progress Note Progress Note The treatment team (nursing, group therapists, social work, and psychiatrist) discussed the patients progress, and reviewed the patients treatment/care plan in the team meeting The patient remains depressed, he fell last night, he described what seems like postural hypotension episode, he felt dizzy after standing up and lost his balance, he reported that he hit his head, he denied nausea or vomiting he did have a slight headache, no loss of consciousness, and no double vision, and no confusion or disorientation, The patient seems to have episodes of restlessness and anxiety Esau is-- for the most part--coherent, an occasional thought block, a couple of days ago may have had a period of paranoia (thinking other patients are against him/dont like because they think he is taking up a bed for no reason no hallucinations, no specific delusions, despite subtle thought disorder, no loose associations or incoherence Still feeling hopeless and occasionally wishing but denies thinking of suicide more denies thinking of violence or homicide Summary and Risk Assessment: Esau is a 52-year-old single White male who was admitted to [facility] on May 06, 2017 after he arrived in the ED on May 05, 2017 by ambulance from his probation officers office. His forward air controller/air officer called for an ambulance after Esau voiced thoughts of suicide. Risk Factors for Suicide and/or violence/homicide: Recent thoughts of suicide, multiple psychosocial stressors Protective and risk mitigating factors for suicide and or violence/homicide: The patient does not have a terminal illness, the patient is not in a chronic severe pain, he has not been abusing alcohol or drugs Treatment Plan Update: Continue inpatient psychiatric care: maintain safety/15min checks; Nursing assessments, VS, education; Psychiatrist to continue daily evaluations; Group and milieu therapy; Social work staff to continue working on a safe discharge Continue sertraline 100 mg daily Add lithium carbonate 150 mg twice daily
[2017-05-20 16:07] VITALS: BP 120/71
--- NOTE | 2017-05-20 16:34 | SOCIAL WORKER PROG NOTE PSYCH ---
Social Work Progress Note Progress Note [facility] case management referral (diagnostic assessment, social and history and physical) faxed to [phone] at 1:43pm. 1:45pm This continuity writer attempted to meet with the patient, however, he stated that he was not interested in meeting today. He reported that he fell last night and was feeling dizzy (this was relayed to nursing staff by this continuity writer). While patient stated that he "did not want to be around anymore," he denied SI. Patient agreed to inform this continuity writer if he would like to meet later today. He was informed that the referral for [facility] case management was submitted, to which he thanked this continuity writer. 4:06pm This continuity writer spoke with Génesis at [facility] ([phone]) to clarify her questions about the patient's medications. She stated that the next review is due on . continuity writer called [facility] to inquire about an earlier appointment and was informed that he could attend an intake today at 1:15pm. Patient was agreeable to this, the appointment was scheduled and the intake at [facility] for 06/01/17 was cancelled. 11:10am This continuity writer and patient contacted his mother by phone to inform of the discharge plans. She was agreeable to these plans and stated that she would shrimp picker the patient around 2pm after the intake today. She was provided with the address to [facility]. This continuity writer and patient contacted his father by phone to inform of the discharge plans. He stated, "I want to keep my son out of the [facility]." He was agreeable to these plans and informed that the patient's mother would pick him up at [facility] around 2pm. Regarding the probate hearing, a doctor presented to [facility] to assess the patient. Following this, this continuity writer discussed with Dr. Robert. Dr. Robert stated that we blake proceed with the discharge as planned from this morning's meeting. This continuity writer spoke with Nedra Delgado LCSW at [facility] and informed her of this and that the patient would still attend today's intake ( scheduled for 1:15pm). 4:00pm This continuity writer spoke with Bryanna Cruz at [facility] to inform that the patient had been discharged from the hospital. She requested a letter informing the court that he had been discharged and the petition was being withdrawn. Faxed Referral(s) Referred To: [facility] Transition of Care Documents sent: Health Summary Faxed to: [facility] Fax #: [phone] Faxed by: Zita Brandt LCSW Date faxed: 05/20/17 Time Faxed: [phone]
[2017-05-20 20:03] VITALS: BP 123/68
[2017-05-21 08:36] VITALS: BP 120/75
--- NOTE | 2017-05-21 11:14 | CT SCAN REPORT ---
EXAMINATION: CT HEAD WITHOUT CONTRAST CLINICAL INFORMATION: Recent psychosis and catatonia. Evaluate for head injury status post fall. COMPARISON: No relevant prior imaging. TECHNIQUE: Contiguous axial imaging was performed from the skull base to vertex without intravenous administration of contrast. DLP: 704.64 mGy-cm FINDINGS: There is no acute intracranial hemorrhage or abnormal extra-axial collection. No intracranial mass effect or midline shift. Lateral and third ventricles are normal. No hydrocephalus. Bowles-white matter differentiation is grossly preserved and there is no evidence of acute territorial infarct. The calvarium and skull base are intact. Mastoid air cells and middle ear cavities are well aerated. Visualized paranasal sinuses are well-aerated with the exception of mild disease within ethmoid air cells and a small mucous retention cyst within the left maxillary sinus. Globes and orbits are symmetric. IMPRESSION: Unremarkable CT scan of the head. No evidence acute territorial infarct or hemorrhage.
--- NOTE | 2017-05-21 11:15 | CP SOUTH PROGRESS NOTE PSYCH ---
Psych (Inpt) Progress Note Progress Note RN, group therapists, PL SQL DEVELOPER, and psychiatrist discussed the patients progress, and reviewed the patients treatment/care plan in the team meeting. Staff reported that he complained of dizziness the remainder of the day yesterday The patient remains depressed this morning, feels hopeless: I think I am going to end up in a state hospital. denied nausea or vomiting this morning I told him I am requesting a CT head, he said he wants to think about it because he was worried he will be billed for it no double vision, and no confusion or disorientation, still wishes , episodes of restlessness and anxiety, although -- for the most part--coherent, he seems to have a subtle thoughts disorder and an occasional thought block, still having lingering paranoia , denied hallucinations, no specific delusions, denies thinking of suicide, denies thinking of violence or homicide Summary and Risk Assessment: Esau is a 52-year-old single White male who was admitted to [facility] on May 06, 2017 after his mechanical engineering officer called for an ambulance after Esau voiced thoughts of suicide. RISK FACTORS FOR SUICIDE AND/OR VIOLENCE/HOMICIDE: 1) Recent thoughts of suicide , multiple psychosocial stressors PROTECTIVE AND RISK MITIGATING FACTORS FOR SUICIDE AND OR VIOLENCE/HOMICIDE: 1) The patient does not have a terminal illness, 2) No chronic severe pain, he has not been abusing alcohol or drugs Treatment Plan Update: Continue inpatient psychiatric care: maintain safety/15min checks; Nursing assessments, VS, education; Psychiatrist to continue daily evaluations; Group and milieu therapy; Social work staff to continue working on a safe discharge Continue sertraline 100 mg daily D/C [place] (patient said he does not want it, he believes it is a dangerous medication) I discussed options for augmentation: he agreed to give Abilify a chance
[2017-05-21 12:20] VITALS: BP 117/68
--- NOTE | 2017-05-21 13:57 | SOCIAL WORKER PROG NOTE PSYCH ---
Social Work Progress Note Progress Note DAV TOVAR [id number] 1965 DAV CAMPJoshua [id number] Pended Authorization # Client Authorization # Type of Request [id number] CONCURRENT Date of Admission/ Start of Services Requested From Submission Date 05/06/2017 05/21/2017 05/21/2017
--- NOTE | 2017-05-21 14:47 | SOCIAL WORKER PROG NOTE PSYCH ---
Social Work Progress Note Progress Note 11am This typewriter tester attempted to meet with patient. Patient refused. 1:40am This typewriter tester met with patient. Patient discussed struggling with anxiety and depression and fears of discharge. He identified concerns about being able to tolerate IOP groups due to his anxiety. This typewriter tester assisted the patient in exploring strategies to manage his anxiety in order to attend groups here on [facility] in order to prepare for the IOP groups. With patient's approval and agreement, Alicia Reynoso OT was invited to join the conversation and assist with identifying strategies. Patient was agreeable with planning on attending the 3pm group today. Following this discussion, the patient was observed sitting in the kitchen as opposed to isolating in his room.
[2017-05-21 16:03] VITALS: BP 137/76
[2017-05-21 19:53] VITALS: BP 126/87
[2017-05-22 07:46] VITALS: BP 130/80
[2017-05-22 12:24] VITALS: BP 124/81
--- NOTE | 2017-05-22 13:28 | CP SOUTH PROGRESS NOTE PSYCH ---
Psych (Inpt) Progress Note Progress Note RN, Group therapist, VIDEO INTERN, and psychiatrist discussed the [place] progress, and reviewed his treatment plan MSE: The patient remains depressed this morning, feels hopeless: I think I am going to end up in a state hospital. denied nausea or vomiting this morning I told him I am requesting a CT head, he said he wants to think about it because he was worried he will be billed for it no double vision, and no confusion or disorientation, still wishes , episodes of restlessness and anxiety, although -- for the most part--coherent, he seems to have a subtle thoughts disorder and an occasional thought block, still having lingering paranoia , denied hallucinations, no specific delusions, denies thinking of suicide, denies thinking of violence or homicide Summary and Risk Assessment: Esau is a 52-year-old single White male who was admitted to [facility] on May 06, 2017 after his bank operations officer called for an ambulance after Esau voiced thoughts of suicide. Risk factors for suicide and/or violence/homicide: 1) Recent thoughts of suicide , 2) multiple psychosocial stressors (poverty, unemployment, legal troubles), 3) Single White Male Protective and risk mitigating factors for suicide and or violence/homicide: 1) does not have a terminal illness, 2) No chronic severe pain, 3) Supportive family, 4) Stable housing/rents his own apartment, not homeless or at risk of becoming homeless, 5) no access to guns Treatment Plan Update: 1) D/C Trazodone 2) D/C PRN hydroxyzine 3) Lorazepam 1.5 mg at bedtime 4) Lorazepam 1 mg Q 6 hours PRN Anxiety 5) Continue sertraline 100 mg daily 6) Continue inpatient psychiatric care: safety (15-min) checks; assessments, VS, and education by Nursing and allied staff; Psychiatrist to continue daily evaluations; Group and milieu therapy; Social work staff to continue working on a safe discharge 7) Continue Abilify 5 mg daily
--- NOTE | 2017-05-22 13:57 | CP SOUTH PROGRESS NOTE PSYCH ---
Psych (Inpt) Progress Note Progress Note Addition/follow up to the previous progress note from today: Adwoa, Art Therapist, shared with me that the patient has been doing art work suggestive of an underlying psychosis Given that the treatment team has been suspecting a psychotic process, I will Increase Abilify dose to 7 mg daily (I already changed the anxiety, and insomnia medications to a benzo because of the suspicion of worsening that
[2017-05-22 16:27] VITALS: BP 127/79
--- NOTE | 2017-05-22 17:08 | SOCIAL WORKER PROG NOTE PSYCH ---
Social Work Progress Note Progress Note This specification writer attempted to meet with the patient on three different occassions today (11am, 1:45pm and 4:07pm). Patient refused each time. On the third attempt, this patient inquired about how the patient was feeling. He denied SI and stated that he felt safe. He agreed to inform staff if feeling unsafe or having other concerns.
[2017-05-22 19:58] VITALS: BP 130/86
[2017-05-23 07:51] VITALS: BP 135/75
--- NOTE | 2017-05-23 11:36 | CP SOUTH PROGRESS NOTE PSYCH ---
Psych (Inpt) Progress Note Progress Note Include the following elements, when applicable: Involvement in the active treatment of the patient with behavioral observations of the patient and the patient's response to the treatment. Review of the ongoing treatment process in the context of the treatment plan. Indication of how multi-disciplinary staff members are carrying out the treatment plan. Plans for future interventions and recommendations for revision of the treatment plan. Liaison with other physicians/providers. Progress Note: Pt notes that he is very tired today because did not sleep well. He denies SI or HI. Was visited by sisters and thinks at least one of them will visit again today. He finds that they are good supports and explained that he was living with one of them as a result of circumstances he did not want to discuss. Current Medications Sig/Bess Start time Last Medication Dose Route Stop Time Status Admin Acetaminophen 650 MG Q6P PRN 05/06 1145 AC 05/16 PO 1309 Al Hydroxide/Mg 30 ML Q4-6 PRN PRN 05/06 1145 AC Hydroxide PO Aripiprazole 7 MG DAILY 05/23 1000 AC 05/23 PO 0844 Aripiprazole 5 MG DAILY 05/21 1115 DC 05/22 PO 0833 Benztropine Mesylate 1 MG Q6P PRN 05/06 1200 AC PO Haloperidol 5 MG Q6P PRN 05/06 1200 AC PO Hydroxyzine HCl 50 MG Q6P PRN 05/19 1145 DC 05/22 PO 0834 Lorazepam 1.5 MG AT BEDTIME 05/22 2200 AC 05/22 PO 2141 Lorazepam 1 MG Q6-PRN PRN 05/22 1330 AC 05/23 PO 0845 Magnesium Hydroxide 30 ML AT BEDTIME PRN 05/06 1145 AC PO Melatonin 5 MG AT BEDTIME 05/23 2200 AC PO Sertraline HCl 50 MG DAILY 05/23 1000 AC 05/23 PO 0844 Sertraline HCl 100 MG DAILY 05/11 1000 DC 05/22 PO 0833 Trazodone HCl 50 MG AT BEDTIME 05/19 2200 DC 05/21 PO 2147 Vital Signs Date Time Temp Pulse Resp B/P B/P Pulse O2 O2 Flow FiO2 Mean Ox Delivery Rate 05/23 0751 99.4 92 135/75 05/22 1958 99.1 98 130/86 05/22 1627 91 127/79 02/02 1224 92 124/81 MSE General appearance: good hygiene and grooming; Attitude: cooperative; Eye contact: appropriate; Movement: no psychomotor agitation or slowing; Speech: nl fluency, nl rate/rhythm, nl volume, nl prosody; Mood: "sleepy" Affect: irritable, flat, appropriate, constricted, non-labile, congruent; Thought process: linear and goal-directed; Thought content: denied SI or HI, no paranoid ideation; Perception: denied hallucinations- auditory, visual, does not appear to be responding to internal stimuli; I/J: limited A/P: Pt with depression and AUD with continued sleep issues. - Added melatonin 5mg qhs for sleep -Continue current medication regimen -Encourage integration into the milieu
[2017-05-23 12:06] VITALS: BP 116/66
[2017-05-23 16:15] VITALS: BP 131/78
[2017-05-23 19:11] VITALS: BP 108/63
[2017-05-24 07:51] VITALS: BP 114/71
[2017-05-24 12:02] VITALS: BP 11/69
--- NOTE | 2017-05-24 12:34 | CP SOUTH PROGRESS NOTE PSYCH ---
Psych (Inpt) Progress Note Progress Note Include the following elements, when applicable: Involvement in the active treatment of the patient with behavioral observations of the patient and the patient's response to the treatment. Review of the ongoing treatment process in the context of the treatment plan. Indication of how multi-disciplinary staff members are carrying out the treatment plan. Plans for future interventions and recommendations for revision of the treatment plan. Liaison with other physicians/providers. Progress Note: Pt notes that slept well overnight. He feels much better overall but still remains depressed. Hopeful that one of the sisters will visit him today but has not heard as of yet. Denies SI or HI. Current Medications Sig/Bess Start time Last Medication Dose Route Stop Time Status Admin Acetaminophen 650 MG Q6P PRN 05/06 1145 AC 05/16 PO 1309 Al Hydroxide/Mg 30 ML Q4-6 PRN PRN 05/06 1145 AC Hydroxide PO Aripiprazole 7 MG DAILY 05/23 1000 AC 05/24 PO 1021 Benztropine Mesylate 1 MG Q6P PRN 05/06 1200 AC PO Haloperidol 5 MG Q6P PRN 05/06 1200 AC PO Lorazepam 0.5 MG .STK-MED ONE 05/23 2209 DC PO 05/23 2210 Lorazepam 1.5 MG AT BEDTIME 05/22 2200 AC 05/23 PO 2209 Lorazepam 1 MG Q6-PRN PRN 05/22 1330 AC 05/23 PO 0845 Magnesium Hydroxide 30 ML AT BEDTIME PRN 05/06 1145 AC PO Melatonin 5 MG AT BEDTIME 05/23 2200 AC 05/23 PO 2209 Sertraline HCl 50 MG DAILY 05/23 1000 AC 05/24 PO 1021 Vital Signs Date Time Temp Pulse Resp B/P B/P Pulse O2 O2 Flow FiO2 Mean Ox Delivery Rate 05/24 1202 93 11/69 02/04 0751 98.5 91 114/71 /03 1911 98.2 96 108/63 02/03 1615 104 131/78 MSE General appearance: good hygiene and grooming; Attitude: cooperative; Eye contact: appropriate; Movement: no psychomotor agitation or slowing; Speech: nl fluency, nl rate/rhythm, nl volume, nl prosody; Mood: "good" Affect: irritable, flat, appropriate, constricted, non-labile, congruent; Thought process: linear and goal-directed; Thought content: denied SI or HI, no paranoid ideation; Perception: denied hallucinations- auditory, visual, does not appear to be responding to internal stimuli; I/J: limited A/P: Pt with depression and AUD with continued sleep issues. -Continue current medication regimen -Encourage integration into the milieu
[2017-05-24 15:27] VITALS: BP 102/63
[2017-05-24 19:10] VITALS: BP 100/63
[2017-05-25 07:51] VITALS: BP 112/73
[2017-05-25 12:04] VITALS: BP 112/77
--- NOTE | 2017-05-25 15:23 | CP SOUTH PROGRESS NOTE PSYCH ---
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 Esau has depression with possible psychotic symptoms Risk factors for suicide and/or violence/homicide: 1) Recent thoughts of suicide , 2) multiple psychosocial stressors (poverty, unemployment, legal troubles), 3) Single White Male Protective and risk mitigating factors for suicide and or violence/homicide: (1) Esau does not have a terminal illness, 2) No chronic severe pain, 3) Supportive family, 4) Stable housing/rents his own apartment, not homeless or at risk of becoming homeless, 5) no access to guns Treatment Plan Update: melatonin 5mg qhs for sleep Abilify 7 mg daily Continue Lorazepam 1.5 mg at bedtime 4) Lorazepam 1 mg Q 6 hours PRN Anxiety 5) Continue sertraline 100 mg daily 6) Continue inpatient psychiatric care: safety (15-min) checks; assessments, VS, and education by Nursing and allied staff; Psychiatrist to continue daily evaluations; Group and milieu therapy; Social work staff to continue working on a safe discharge
[2017-05-25 15:54] VITALS: BP 108/71
--- NOTE | 2017-05-25 16:58 | SOCIAL WORKER PROG NOTE PSYCH ---
Social Work Progress Note Progress Note [facility] REVIEW COMPLETED
--- NOTE | 2017-05-25 17:36 | SOCIAL WORKER PROG NOTE PSYCH ---
Social Work Progress Note Progress Note This publicity writer met with patient. He as informed of an anticipated discharge date of , 05/28/17. Patient stated that he does not want to discharge on and will inform his sister that he will be discharging on Thursday or Thursday. This publicity writer inquired about the additional day(s), to which he stated, "I just need more time." Patient stated that he continues to avoid groups, however, willing to attend [facility]. He reported overall improved mood, though still anxious.
[2017-05-25 20:06] VITALS: BP 118/73
[2017-05-26 07:34] VITALS: BP 104/74
[2017-05-26 12:03] VITALS: BP 122/70
--- NOTE | 2017-05-26 14:56 | SOCIAL WORKER PROG NOTE PSYCH ---
Social Work Progress Note [facility] entered: Member Name Member ID Member Subscriber Name Subscriber ID DAV TOVAR [id number] 1965 DAV TOVAR [id number] Pended Authorization # Client Authorization # Type of Request [id number] CONCURRENT Date of Admission/ Start of Services Requested From Submission Date 05/06/2017 05/26/2017 05/26/2017 Level of Service Type of Service Level of Care Type of Care INPATIENT/OC Mental Health Inpatient Inpatient Hospital - Inpatient [facility]
--- NOTE | 2017-05-26 15:12 | CP SOUTH PROGRESS NOTE PSYCH ---
Psych (Inpt) Progress Note Progress Note RN, Group therapist, ANTENNA DESIGN ENGINEER, and psychiatrist discussed the Esdras progress and reviewed his treatment plan MSE: Esau says he has been less anxious but remains depressed and in bed, denied nausea or vomiting , no confusion or disorientation, still somewhat hopeless occasional wishes of but no thoughts of suicide, and no plans or intent of suicide less restlessness and less anxiety, ? subtle thoughts disorder with an occasional thought block, lingering paranoia, may have delusions of reference but no clear cut overt delusions, denied hallucinations, denies thinking of violence or homicide Summary and Risk Assessment: Esau is a 52-year-old single White male who was admitted to [facility] on May 06, 2017 after his safety patrol officer called for an ambulance after Esau voiced thoughts of suicide. Esau has depression with possible psychotic symptoms Risk factors for suicide and/or violence/homicide: 1) Recent thoughts of suicide, 2) multiple psychosocial stressors (poverty, unemployment, legal troubles), 3) Single White Male Protective and risk mitigating factors for suicide and or violence/homicide: (1) Esua does not have a terminal illness, 2) No chronic severe pain, 3) Supportive family, 4) Stable housing/rents his own apartment, not homeless or at risk of becoming homeless, 5) no access to guns Treatment Plan Update: Continue melatonin 5mg qhs for sleep Abilify 7 mg daily Continue Lorazepam 1.5 mg at bedtime 4) Lorazepam 1 mg Q 6 hours PRN Anxiety 5) Continue sertraline 100 mg daily 6) Continue inpatient psychiatric care: safety (15-min) checks; assessments, VS, and education by Nursing and allied staff; Psychiatrist to continue daily evaluations; Group and milieu therapy; Social work staff to continue working on a safe discharge
[2017-05-26 16:09] VITALS: BP 108/72
--- NOTE | 2017-05-26 16:32 | SOCIAL WORKER PROG NOTE PSYCH ---
Social Work Progress Note Progress Note 10:50am This engineering writer met with patient. Patient reports being unwilling to attend IOP at this time, however was agreeable to considering further. He discussed feeling overwhelmed by the requirement to complete his DV class and also try to fit in IOP. Patient continues to present as anxious. While he reports ongoing depression and hopelessness, he stated that his symptoms have improved during this inpatient admission.
[2017-05-26 20:08] VITALS: BP 118/77
[2017-05-27 07:56] VITALS: BP 105/75
[2017-05-27 12:20] VITALS: BP 113/77
--- NOTE | 2017-05-27 12:21 | CP SOUTH PROGRESS NOTE PSYCH ---
Psych (Inpt) Progress Note Progress Note RN, Group therapist, GEAR TOOTH GRINDING MACHINE OPERATOR, and psychiatrist discussed Esdras progress and reviewed his treatment plan MSE: Esau was in bed while all patient were having breakfast in the dining area He says he is depressed and anxious, still somewhat hopeless/wishing of natural causes no thoughts of suicide, and no plans or intent of suicide he denied feeling paranoid today, there were no delusions ?? subtle thought disorder ?? denied hallucinations, denies thinking of violence or homicide Summary and Risk Assessment: Esau is a 52-year-old single White male who was admitted to [facility] on May 06, 2017 after his air defense artillery officer called for an ambulance after Esau voiced thoughts of suicide. Esau has depression with possible psychotic symptoms Risk factors for suicide and/or violence/homicide: 1) Recent thoughts of suicide upon admission to the inpatient psychiatric unit 2) Multiple psychosocial stressors (poverty, unemployment, legal troubles), 3) Single White Male Protective and risk mitigating factors for suicide and or violence/homicide: (1) Esau does not have a history of violence 2) Does not have a terminal illness, 3) Supportive family, 4) Stable housing/rents his own apartment, not homeless or at risk of becoming homeless, 5) No access to guns 6) Esau has been denying thoughts of suicide for several days 7) No chronic severe pain Treatment Plan Update: Continue Abilify 7 mg daily Reduce Lorazepam to 1 mg at bedtime D/C Lorazepam PRN Anxiety Increase sertraline back to 100 mg daily Continue inpatient psychiatric care: # Safety checks; assessments, VS, and education by Nurses and Nurses Aides # Group and milieu therapy; # Social work staff to continue working on a safe discharge # Psychiatrist to continue daily evaluations;
[2017-05-27 16:11] VITALS: BP 109/68
--- NOTE | 2017-05-27 18:20 | SOCIAL WORKER PROG NOTE PSYCH ---
Social Work Progress Note Progress Note 11:30am This promotion writer met with patient. He was agreeable to [facility] IOP upon discharge. Patient appeared guarded and not willing to meet further. He ended the meeting at this time. 5:00pm Patient was visiting by a friend, Tatianna Dimitrirhianna, this evening who requested to speak with this promotion writer. Patient was agreeable to this and signed an KINA. Upon her inquiry, she was informed of IOP as well as case management services (the latter through [facility]). Patient shared the anticipated discharge date of ; they was informed of the process regarding discharging from the hospital, attending the intake and being informed of the IOP schedule at the time of the intake.
[2017-05-27 19:46] VITALS: BP 111/75
[2017-05-28 07:49] VITALS: BP 113/78
[2017-05-28 11:53] VITALS: BP 105/67
--- NOTE | 2017-05-28 13:20 | CP SOUTH PROGRESS NOTE PSYCH ---
Psych (Inpt) Progress Note Progress Note RN, Group therapist, FACILITIES OFFICER, and psychiatrist discussed Esdras progress and reviewed his treatment plan Vitals Blood Pressure 113/78 05/28/17 0749 Blood Pressure 105/67 05/28/17 1153 Pulse Rate 87 05/28/17 0749 Pulse Rate 76 05/28/17 1153 Temperature 97.8 05/28/17 0749 MSE: Esau was in bed "resting", he was awake. He says that he is depressed but denied wishing today still anxious about discharge tomorrow but he said that his anxiety level is better than before still somewhat hopeless/helpless but no thoughts of suicide, he denied feeling paranoid & there were no delusions no overt thought disorder but ?? subtle thought disorder Esau denied hallucinations, and denies thinking of violence or homicide Summary and Risk Assessment: Esau is a 52-year-old single White male who was admitted to [facility] on May 06, 2017 after his forward air controller/air officer called for an ambulance after Esau voiced thoughts of suicide. Esau has depression with possible psychotic symptoms Risk factors for suicide and/or violence/homicide: 1) Recent thoughts of suicide upon admission to the inpatient psychiatric unit 2) Multiple psychosocial stressors (poverty, unemployment, legal troubles), 3) Single White Male Protective and risk mitigating factors for suicide and or violence/homicide: (1) Esau does not have a history of violence (2) Does not have a terminal illness, (3) Supportive family, (4) Stable housing/rents his own apartment, not homeless or at risk of becoming homeless, 5) No access to guns (6) Esau has been denying thoughts of suicide for several days (7) No chronic severe pain (8) No command hallucinations Treatment Plan Update: Continue Abilify 7 mg daily Reduce Lorazepam to 0.5 mg at bedtime Continue sertraline back to 100 mg daily Continue inpatient psychiatric care (Safety checks Q15 minutes; assessments, VS, and education by Nurses and Nurses Aides,, # Group and milieu therapy; # Social work staff to continue working on a safe discharge,, # Psychiatrist to continue daily evaluations)
--- NOTE | 2017-05-28 14:49 | SOCIAL WORKER PROG NOTE PSYCH ---
Social Work Progress Note Progress Note 10:11am This radio news writer met with patient. Discharge was discussed as tomorrow is the anticipated discharge date. Patient stated, "I need to get on with my life. It looks promising." He was agreeable to attending the IOP intake tomorrow and following up with IOP as part of his discharge plan. Patient identified activities that he enjoys participating in, particularly, golf and working (with a [employer]). Patient requested to end this meeting. 11:25am This radio news writer left daryl Hughes at [facility] regarding the case management referral. She returned the call leaving a explaining that the patient would need to complete IOP before he begins case management at [facility].
[2017-05-28 16:05] VITALS: BP 112/71
[2017-05-28 19:34] VITALS: BP 119/75
[2017-05-29 07:32] VITALS: BP 112/73
[2017-05-29 12:03] VITALS: BP 117/78
[2017-05-29] MEDS ORDERED: ABILIFY5 M1 PO (12:19)
[2017-05-29] MEDS ORDERED: ATIVAN0.5 M1 PO (12:19)
[2017-05-29] MEDS ORDERED: GABAPENTIN300 M2 PO (12:19)
[2017-05-29] MEDS ORDERED: ZOLOFT100 M1 PO (12:19)
--- NOTE | 2017-05-29 12:26 | Patient Discharge Instructions ---
Psych Discharge Inst General Discharge Information Reason for Admission: Patient told the hydrological technical officer that he wanted to kill himself Psy Discharge Primary Diag+ Unspecified Depressive Di Unspecified Anxiety Disor Alcohol Use Disorder Summary Tests/Major Procedures Blood alcohol level on arrival was 83 mg/dL the complete blood count showed only very minor anemia hemoglobin was 13.0 g/dL (reference range is 14-18 g/dL) Hematocrit was 38.6% (reference range 42-52%) Studies Pending at [place]: None Patient Instructions Contact Information Your Psychiatrist on [facility] was Jae Robert MD * If you are experiencing an emergency related to this hospitalization, please call [phone] to contact the treating psychiatrist or the psychiatrist-on- call. * To Request a copy of your medical records, please contact the Medical Records Department at [phone]. * To request results of studies pending at the time of discharge, please call [phone]. * Continue your Medications until directed to stop by your Healthcare provider. General Medication Information Please continue to take your new medications and your continued home medications , unless otherwise indicated on your discharge medication list, or unless directed by your MD or HOSPITALIST PHYSICIAN to stop them. Special Instructions Diet Regular Activity As Tolerated - Tobacco Use Treatment Offered Post DC Medications Offered: Not Applicable Post DC Tobacco Treatment Plan: Not Applicable - EtOH/Drug Use D/O Treatment Offered Post DC Medications Offered: Script Given-See Med List Post DC EtOH/SubAbuse TX Plan: Kaveh SubAbuse/Dual IOP Metabolic Screening Patient on a neuroleptic(s) . Enter below results for Hemoglobin A1C, and lipid panel if obtained during the last 365 days. BMI: 25.200 Blood Pressure: 117/78 Laboratory Results From [facility] (If applicable): Lab Cholesterol 186 MG/DL 05/05/17 1053 Cholesterol/HDL Ratio 4 % 05/05/17 1053 HDL Cholesterol 48 mg/dL 05/05/17 1053 Hemoglobin A1c 6.0 % H 05/05/17 1053 LDL Cholesterol, Calc 122 mg/dL 05/05/17 1053 TSH 2.990 uIU/mL 05/07/12 1520 Triglycerides 83 mg/dL 05/05/17 1053 Advance Directives Does the Patient have Medical Advance Directives No/Refused further info Does Pt have Psychiatric Advance Directives? No/Refused further info Does Patient have a Designated Surrogate Decision Maker: No Information About Psychiatric Advance Directives Provided? Refused Discharge Plan Post Hospital Treatment Plan: ALISON MAHAN
--- NOTE | 2017-05-29 12:38 | CP SOUTH PROGRESS NOTE PSYCH ---
Psych (Inpt) Progress Note Progress Note Vitals Blood Pressure 117/78 05/29/17 1203 Pulse Rate 79 05/29/17 1203 Respiratory Rate 18 05/29/17 1203 Temperature 97.8 05/29/17 0732 MSE: Esau reported some anxiety about being discharged today. He alert and oriented x 3. He says that he is depressed but denied wishing today and denied thoughts of suicide less hopeless/helpless , he denied feeling paranoid & there were no delusions no overt thought disorder , Esau denied hallucinations, and denies thinking of violence or homicide Summary and Risk Assessment: Esau is a 52-year-old single White male who was admitted to [facility] on May 06, 2017 after his special officer automat called for an ambulance after Esau voiced thoughts of suicide. Esau has depression with possible psychotic symptoms Risk factors for suicide and/or violence/homicide: 1) Recent thoughts of suicide upon admission to the inpatient psychiatric unit 2) Multiple psychosocial stressors (poverty, unemployment, legal troubles), 3) Single White Male Protective and risk mitigating factors for suicide and or violence/homicide: (1) Esau does not have a history of violence (2) Does not have a terminal illness, (3) Supportive family, (4) Stable housing/rents his own apartment, not homeless or at risk of becoming homeless, 5) No access to guns (6) Esau has been denying thoughts of suicide for several days (7) No chronic severe pain (8) No command hallucinations Treatment Plan Update: Discharge Home [facility] for follow up
[2017-05-29] MEDS ORDERED: ABILIFY2 MG PO (13:12)
--- NOTE | 2017-05-29 15:59 | DISCHARGE SUMMARY REPORT-PSYCH ---
Visit Information Visit Dates/Diagnosis' Admission Date: 05/06/2017 Discharge Date: 05/29/17 Reason for Admission: Patient told the field health officer that he wanted to kill himself Psy Discharge Primary Diag: Unspecified Depressive Di Unspecified Anxiety Disor Alcohol Use Disorder Psy Discharge Secondary Diag: General Anxiety Disorder (Alcohol ), Alcohol Use Disorder Hospital Course Course Allergies: Coded Allergies: NO KNOWN ALLERGIES (NONE 05/08/17) Discharge HBIPS - Tobacco Use Treatment Offered - EtOH/Drug Use D/O Treatment Offered Metabolic Screening - Screen if on a Neuroleptic Medication - Metabolic screening should include: - Blood Pressure, BMI, Glucose or Hgb A1c, & a - Lipid profile from within the past 365 days. Discharge Instructions General Discharge Information Discharge Diet Regular Discharge Activity As Tolerated Referrals Ordered Referrals Provider Referral 05/29/17 For Groups: [[facility]] [facility] [address] [place], [place] [phone] Intake: 05/29/17, at 1:15pm Prescriptions Stop taking the following medications: Sertraline HCl (Sertraline HCl) 50 MG TABLET ORAL DAILY Qty = 100 Trazodone HCl (Trazodone HCl) 50 MG TABLET ORAL Start taking the following new medications: Gabapentin (Gabapentin) 300 MG CAPSULE 600 Milligram ORAL AT BEDTIME as needed for INSOMNIA Qty = 30 No Refills Comments: NOT TAKEN WHILE IN HOSPITAL Sertraline HCl (Zoloft) 100 MG TABLET 100 Milligram ORAL DAILY Qty = 14 No Refills Comments: Last Taken:05/29/17 Time:8am Aripiprazole (Abilify) 5 MG TABLET 1 Tablet ORAL DAILY Qty = 14 No Refills Comments: Last Taken:05/29/17 Time:8am Lorazepam (Ativan) 0.5 MG TABLET 0.5 Milligram ORAL AT BEDTIME Qty = 3 No Refills Comments: Last Taken:05/28/17 Time:10pm Aripiprazole (Abilify) 2 MG TABLET 1 Tablet ORAL DAILY Qty = 14 No Refills
--- NOTE | 2017-05-29 16:17 | SOCIAL WORKER PROG NOTE PSYCH ---
Social Work Progress Note Progress Note This consumer loan underwriter met with patient. Patient discussed discharge and feeling comfortable with the discharge plan; he denied any concerns about discharge today and denied SI/HI/AH/VH. Patient was informed that this consumer loan underwriter received a vm from Ellen at [facility] regarding case management services stating that the patient would need to complete IOP before engaging in case management. Patient was agreeable to this and stated that he would contact them once he completed IOP. Patient accepted the intake appointment with [facility] for today at 1:15pm. This consumer loan underwriter and patient identified a safety plan: "call my sister." Patient was also informed that he would be provided with crisis numbers and warm line numbers, which he was agreeable to utilizing. Patient stated that he plans to return to his apartment and that his sister will provide transportation home from the IOP intake this afternoon. Patient stated that he does not need assistance with any other appointments. Upon returning home, the patient stated that he plans to schedule an appointment with his primary care provider and contact his penal officer (Siva Paz) to schedule an appointment. At patient's request and request of his penal officer, this consumer loan underwriter faxed a letter to his penal officer, Crispin Paz, indicating date of admission and date of discharge. Patient signed a KINA and reviewed letter prior to faxing. Fax number: [phone]; faxed at 3:36pm on 05/29/2017. Faxed Referral(s) Referred To: [facility] Transition of Care Documents sent: Health Summary, transfer summary Faxed to: [facility] Fax #: [phone] Faxed by: Zita Brandt LCSW Date faxed: 05/29/17 Time Faxed: [phone]
== END 2017-05-29 13:30 | DRG 754 ==
LOC: ERH 10:15 → CP SOUTH 05-06 17:32 → ERHI 05-06 17:32 → CP SOUTH 05-06 20:23 → CANRESERV 05-06 23:59 → ENRESERV 05-06 23:59 → CP SOUTH 05-07 10:21
PROVIDERS: Physician Assistant
DX: F32.9 Major depressive disorder, single episode, unspecified (principal); F41.9 Anxiety disorder, unspecified; Z72.89 Other problems related to lifestyle
CPT/HCPCS: 80307; G0463; G0480; J3230; J3490

== ENCOUNTER 2017-09-22 15:05 | Inpatient (IN) | payer OTHER ==
[~2017-09-22] VITALS: Ht 188 cm; Wt 95.4 kg
[~2017-09-22 15:05] MED LIST changes: +ABILIFY2 MG PO; +ABILIFY5 M1 PO; +ATIVAN0.5 M1 PO; +GABAPENTIN300 M2 PO; +SERTRALINE HCL50 MG PO; +TRAZODONE HCL50 M1 PO; +ZOLOFT100 M1 PO
--- NOTE | 2017-09-22 15:30 | ED PSYCHIATRIC COMPLAINT ---
History of Present Illness General Chief Complaint: Psychiatric Related Complaint Stated Complaint: BIBA +SI Source: patient, old records Exam Limitations: no limitations Vital Signs & Intake/Output Vital Signs & Intake/Output Vital Signs Date Time Temp Pulse Resp B/P B/P Pulse O2 O2 Flow FiO2 Mean Ox Delivery Rate 09/25 742 97.0 69 115/73 09/25 2015 98.7 83 123/75 09/24 1617 70 108/65 09/24 1228 65 114/70 Allergies Coded Allergies: NO KNOWN ALLERGIES (NONE 05/08/17) Reconcile Medications Gabapentin 300 MG CAPSULE 600 MG PO AT BEDTIME PRN INSOMNIA Triage Note: PER EMS PT REPORTS + SI, WAS DISCHARGED FROM [facility] 1 MONTH AGO, REPORTS LAST DRINK Thursday09/18/17 DENIES WITHDRAWAL.... CALM COOP ORIGINAL PEC IN LOCK BOX Triage Nurses Notes Reviewed? yes HPI: Patient presents for evaluation of suicide ideation. He states he contemplated driving his car into a tree today. He admits to a history of depression and has been compliant with medications and his IOP program. He denies any specific event today that worsened his depression or triggered this suicide ideation. He does state however he has a number of life stressors including being on probation and being responsible for child support. He has no medical complaints currently. He denies cigarette smoking or drug use. Does admit to infrequent alcohol intake, his last alcoholic beverage was on Thursday. Patient feels his depression is severe and more or less constant but fluctuates in intensity. Currently nothing seems to make him feel better. Past History Travel History Traveled to [place] past 21 day No Medical History Any Pertinent Medical History? 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 No Review of Systems Review of Systems Constitutional: Reports: no symptoms. EENTM: Reports: no symptoms. Respiratory: Reports: no symptoms. Cardiovascular: Reports: no symptoms. GI: Reports: no symptoms. Genitourinary: Reports: no symptoms. Musculoskeletal: Reports: no symptoms. Skin: Reports: no symptoms. Neurological/Psychological: Reports: see HPI. Hematologic/Endocrine: Reports: no symptoms. Immunologic/Allergic: Reports: no symptoms. All Other Systems: Reviewed and Negative Physical Exam Physical Exam General Appearance: SEE BELOW Neurological/Psychiatric: SEE BELOW Comments: General: Alert, calm, cooperative Head: Normocephalic, atraumatic Eyes: Normal inspection, no nystagmus, EOMI Ears: Normal inspection Nose: Normal inspection Throat: Moist mucosa Neck: Supple, no goiter Heart: Regular rate and rhythm, no murmurs rubs or gallops Lungs: Clear to auscultation bilaterally with good air entry Abdomen: Soft nontender nondistended, normal bowel sounds Chest: Nontender Extremities: Normal range of motion grossly, mild tremors present, no cyanosis clubbing or edema of the upper extremities Neurologic: cranial nerves II through XII grossly intact, speech clear, gait normal Psychiatric: No apparent delusions or hallucinations, no pressured speech or thought blocking, depressed affect SAD PERSONS Done? DEFERRED TO CRISIS Progress Differential Diagnosis: DEPRESSION, ANXIETY, BIPOLAR DISORDER, PERSONALITY DISORDER Plan of Care: Current Medications Sig/Bess Start time Last Medication Dose Stop Time Status Admin Naltrexone HCl 50 MG 0800 09/25 0800 AC 09/25 (Revia) 0746 Escitalopram Oxalate 20 MG DAILY 09/24 0900 AC 09/25 (Lexapro) 0746 Multivitamins 1 TAB DAILY 09/24 0900 AC 09/25 (Theragran Vitamins) 09/30 1600 0746 Gabapentin 600 MG AT BEDTIME 09/23 2100 AC 09/24 (Neurontin) 2056 Folic Acid 1 MG DAILY 09/23 1453 AC 09/25 (Folic Acid) 09/27 1600 0746 Thiamine HCl 100 MG DAILY 09/23 1452 AC 09/25 (Vitamin B1) 09/27 1800 0746 Gabapentin 300 MG 0800,1400 09/23 1400 AC 09/25 (Neurontin) 0746 Gabapentin 400 MG Q6-PRN PRN 09/23 1230 AC 09/24 (Neurontin) 1616 Departure Departure Disposition: STILL A PATIENT Condition: Stable Clinical Impression Primary Impression: Depression Secondary Impressions: Suicide ideation Referrals: Vivi Neumann MD (PCP/Family) Departure Forms: Customer Survey General Discharge Information Psych Admission Note Psychiatric Admission: I have seen and evaluated JANUSONIS,DAV. I have also reviewed all the pertinent lab results and diagnostic results. DAV TOVAR will be admitted to our inpatient Psychiatric unit for treatment and care.
[2017-09-22 15:51] LABS: ABSOLUTE BASOPHIL COUNT 0 /CUMM (0.0-0.2); ABSOLUTE EOSINOPHIL COUNT 0.1 /CUMM (0.0-0.7); ABSOLUTE GRANULOCYTE CT 3.3 /CUMM (1.4-6.5); ABSOLUTE LYMPH COUNT 1.9 /CUMM (1.2-3.4); ABSOLUTE MONOCYTE COUNT 0.5 /CUMM (0.10-0.60); BASOPHIL % 0.5 % (0.0-2.0); EOSINOPHIL % 0.9 % (0-5); GRANULOCYTE % 57.6 % (42.2-75.2); MEAN CORPUSCULAR HGB 30.6 PG (27.0-31.0); MEAN CORPUSCULAR HGB CONC 33.9 G/DL (33.0-37.0); MEAN CORPUSCULAR VOLUME 90.2 FL (80.0-94.0); MEAN PLATELET VOLUME 6.8 FL (7.4-10.4); PLATELET COUNT 279 /CUMM (130-400); RBC DISTRIBUTION WIDTH 13.8 % (11.5-14.5); RED BLOOD CELL CT 4.77 /CUMM (4.70-6.10); WHITE BLOOD CELL COUNT 5.7 /CUMM (4.8-10.8)
[2017-09-22 16:36] VITALS: BP 131/91
--- NOTE | 2017-09-22 17:08 | ED PSYCH CRISIS CONSULTATION ---
See Addendum Crisis Consult Basic Assessment Date of Consult: 09/22/17 Responsible Person/Accompanied By: BIBA and on PEER Insurance Authorization: Insurance #1: Insurance name: DAVID CARR Phone number: Policy number: [id number] Group number: DAVID Deshpande Authorization number: ED Provider: Patient's ED Provider: [place] EARLY,Hunter Figueroa Primary Care Physician: Patient's PCP: Vivi Neumann MD PCP's Phone Number: Current Psychiatrist: Kaveh [facility] Chief Complaint: Psychiatric Related Complaint Patient's Quote: "Depression, I was thinking about driving car into a tree." Present Illness: The patient is a 52 year old, male presenting to the ED, via ambulance and on a PEER for suicidal ideations. He reports that he has been experiencing worsening symptoms of depression and having thoughts to drive his car into a tree and was concerned that he would act on his thoughts. He reports that he has been feeling helpless and hopeless and sleeping too much. He was admitted to [facility] in April 2017 and transitioned to the evening IOP at [facility]. He states that he has not been consistent and was actually discharged from [facility] and readmitted. He states that he has been drinking alcohol throughout his treatment at [facility] and did not tell them. He states that he would relapse, when he had money to do so, with the last time being Monday September 18, 2017. He denies any drug use and his toxicology screen was negative. He states that besides the dual diagnosis [facility], he has never attended substance abuse specific treatment, with the exception of a detox "many years ago." He resides by himself and has not been working. He states that his sister and a friend have been supporting him. He states that he is not currently in a relationship and has one 17 year old child, that he does not see that often. He states that he owes back child support, from when he was in long-term. He states that he was in long-term for threatening , stalking and BOP and that he was released 03/24/2017, with 3 years of probation. He is not sure what would be most helpful, however is willing to go inpatient, if that is what the psychiatrist recommends. BRAVO spoke to the patients sister, Berna Lyles ([phone]), for collateral information. Berna reports that the patient has not been doing well and that he needs help. She reports that he has had a lack of motivation and has not been taking care of himself or attending work. Berna believes that the patient will be evicted, as he has not been working. Berna reports that he is depressed and that he needs help. She reports that he was not attending IOP, as he should and that he needs to be back in the hospital. Patient's Address: [address] [place] [address] [place] [address] Other Phone Number: Who Do You Live With? Patient/Self Family/Informants Interviewed: Berna Lyles- Sister- [phone] Allergies - Coded Allergies: NO KNOWN ALLERGIES (NONE 05/08/17) Current Medications - Scheduled Medications Aripiprazole (Abilify) 5 MG TABLET 1 TAB PO DAILY with 2 mg = 7mg daily #14 TAB Prescribed by Jae Robert MD on 05/29/17 Aripiprazole (Abilify) 2 MG TABLET 1 TAB PO DAILY with 5 mg =7 mg #14 TAB Prescribed by Jae Robert MD on 05/29/17 Lorazepam (Ativan) 0.5 MG TABLET 0.5 MG PO AT BEDTIME for 3 nights then STOP # 3 TAB Prescribed by Jae Robert MD on 05/29/17 Sertraline HCl (Zoloft) 100 MG TABLET 100 MG PO DAILY depression and anxiety # 14 TAB Prescribed by Jae Robert MD on 05/29/17 Scheduled PRN Medications Gabapentin 300 MG CAPSULE 600 MG PO AT BEDTIME PRN INSOMNIA #30 CAP Prescribed by Jae Robert MD on 05/29/17 Laboratory Results: Laboratory Tests 09/22/17 1614: Urine Opiates Screen < 100, Methadone Screen < 40, Barbiturate Screen < 60, Ur Phencyclidine Scrn < 6.00, Amphetamines Screen < 100, U Benzodiazepines Scrn < 85, Urine Cocaine Screen < 50, Urine Cannabis Screen < 5.00 09/22/17 1544: Anion Gap 9, Estimated GFR > 60, BUN/Creatinine Ratio 10.0, Glucose 97, Calcium 9.4, CBC w Diff NO MAN DIFF REQ, RBC 4.77, MCV 90.2, MCH 30.6, MCHC 33.9, RDW 13.8, MPV 6.8 L, Gran % 57.6, Lymphocytes % 32.8, Monocytes % 8.2, Eosinophils % 0.9, Basophils % 0.5, Absolute Granulocytes 3.3, Absolute Lymphocytes 1.9, Absolute Monocytes 0.5, Absolute Eosinophils 0.1, Absolute Basophils 0, Serum Alcohol < 10.0 Past History Past Medical History Neurological: NONE EENT: NONE Cardiovascular: NONE Respiratory: NONE Gastrointestinal: NONE Hepatic: NONE Renal: NONE Musculoskeletal: RIGHT HIP REPLACEMENT ANK Psychiatric: alcohol dependence, depression Endocrine: NONE Blood Disorders: NONE Cancer(s): NONE 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 He has good insight into his need for treatment and is motivated to attend. Physical Limitations (Interventions): None noted Psychiatric Treatment History Psych Treatment Psychiatric Treatment Yes Inpatient Treatment Yes Outpatient Treatment Yes Location of Treatment [facility] Reason for Treatment Depression and suicidal ideations Dates of Treatment CPS April 2017 and is current with [facility] Response to Treatment He has not been compliant with treatment and has been drinking periodically and not being honest with [facility]. Diagnosis by History: Unknown Substance Use/Abuse History Drug Use/Abuse Substances Used/Abused Yes Substance Used/Abused Alcohol First Use 12 years Last Used Thursday; September 18, 2017 How much used/taken "a pint and a half of [place] and a 6 pack." How often He states that he has been intermittently drinking while in [facility] For how long He has a long history of alcohol abuse Route of use oral Substance Abuse Treatment Substance Abuse Treatment Past Substance Abuse [place] Yes Inpatient Treatment Yes Outpatient Treatment Yes Location of Treatment [facility] Reason for Treatment He states he is in [facility] for alcohol and mental health issues currently. He states that he has a history of attending a detox, many years ago, however did not give specifics. Dates of Treatment Current with [facility] Response to Treatment He states that he has been drinking while he has been in [facility] and has not disclosed that to them. Comments: N/A Current Mental Status Mental Status Orientation: Person, Place, Situation Affect: Depressed, Sad Speech: WNL Neuro-vegetative: Helpless, Sleep Disturbance, Decreased motivation Appearance Appearance- Dress/Hygiene: The patient was sitting on the bed, in hospital attire and appeared stated age and was neat and clean. Behaviors Thought Process: WNL Thought Content: WNL Memory: WNL Insight: WNL SI/HI Risk Assessment Past Suicidal Ideation/Attempts Yes Current Suicidal Ideation/Att Yes Past Homicidal Ideation/Att: No Current Homicidal Ideation/Attempts No Degree of Intent: Plan, States Intent, He denies any history of suicide attempts. He reports that he has been having suicidal ideations and has a plan to drive his car into a tree and he is concerned that he will act on his thoughts. Danger To: Self Gravely Disabled: Poor Impulse Control Risk Factors: SA/MH hospitalized, substance abuse, isolate/no social support, poor impulse control, male Lethality Ratin PTSD Checklist PTSD Done? patient declined (Denies trauma or abuse hx.) ED Management Sitter: Yes Restraints: No DSM5/PS Stressors/Medical Prob Diagnosis' (DSM 5, Stressors, Medical): F32.9 Unspecified Depressive Disorder F10.20 Alcohol use Disorder Medical: Unremarkable Stressors: Legal- on probation and child support issues, Current GAF: 25 Comments: N/A Departure Disposition Psych Medical Clearance Date: 09/22/17 Medically Cleared at: 1600 Time Started: 1615 Time Ended: 1700 Psychiatrist Consulted: Paola Mcdonough MD Date Disposition Established: 09/22/17 Time Disposition Established: 173 Plan for Disposition - Modality: Inpatient Psychiatry Facility: [facility] Contact: N/A Telephone: N/A Rationale for Disposition: The patient presents with worsening depression and anxiety and has been having suicidal ideations with a plan and intent to act on his thoughts. He reports that he has been feeling helpless and hopeless. He has had multiple relapses on alcohol, despite being in IOP at [facility]. Case discussed with Dr. Mcdonough and she finds him to be a risk to self and in need of an inpatient admission. He will sign a voluntary admission. Type of IP Admission: Voluntary Additional Instructions: N/A Referrals Vivi Neumann MD (PCP/Family)
--- NOTE | 2017-09-22 17:54 | IP CRISIS DIAG ASSESS PSYCH ---
Diagnostic Assessment Basic Assessment Insurance Authorization: Insurance #1: Insurance name: DAVID CARR Phone number: Policy number: [id number] Group number: DAVID Deshpande Authorization number: Prior authorization was requested through the online [facility] portal and was approved. Authorization # [id number] Client Authorization # [id number] Type of Request INITIAL Primary Care Physician: Patient's PCP: Vivi Neumann MD PCP's Phone Number: Patient's Quote: "Depression, I was thinking about driving car into a tree." Present Illness: The patient is a 52 year old, male presenting to the ED, via ambulance and on a PEER for suicidal ideations. He reports that he has been experiencing worsening symptoms of depression and having thoughts to drive his car into a tree and was concerned that he would act on his thoughts. He reports that he has been feeling helpless and hopeless and sleeping too much. He was admitted to [facility] in April 2017 and transitioned to the evening [facility] at [place]. He states that he has not been consistent and was actually discharged from [facility] and readmitted. He states that he has been drinking alcohol throughout his treatment at [facility] and did not tell them. He states that he would relapse, when he had money to do so, with the last time being Monday September 18, 2017. He denies any drug use and his toxicology screen was negative. He states that besides the dual diagnosis [facility], he has never attended substance abuse specific treatment, with the exception of a detox "many years ago." He resides by himself and has not been working. He states that his sister and a friend have been supporting him. He states that he is not currently in a relationship and has one 17 year old child, that he does not see that often. He states that he owes back child support, from when he was in long term. He states that he was in long term for threatening , stalking and BOP and that he was released 03/24/2017, with 3 years of probation. He is not sure what would be most helpful, however is willing to go inpatient, if that is what the psychiatrist recommends. BRAVO spoke to the patients sister, Berna Lyles ([phone]), for collateral information. Berna reports that the patient has not been doing well and that he needs help. She reports that he has had a lack of motivation and has not been taking care of himself or attending work. Berna believes that the patient will be evicted, as he has not been working. Berna reports that he is depressed and that he needs help. She reports that he was not attending IOP, as he should and that he needs to be back in the hospital. Patient's Address: [address] [place] [address] [place] [address] Other Phone Number: Who Do You Live With? Patient/Self Feel Safe Where You Live? Yes Feel Safe in Your Relationship No (Denies being in a relationship) If No, Please Elaborate: N/A Marital Status: Do You Have Children? Yes Ages? 16 Primary Language? Malawian Language(s) Spoken At Home: Malawian Family/Informants Interviewed: Berna Lyles- Sister- [phone] Allergies - Coded Allergies: NO KNOWN ALLERGIES (NONE 05/08/17) Current Medications - Scheduled Medications Aripiprazole (Abilify) 5 MG TABLET 1 TAB PO DAILY with 2 mg = 7mg daily #14 TAB Prescribed by Jae Robert MD on 05/29/17 Aripiprazole (Abilify) 2 MG TABLET 1 TAB PO DAILY with 5 mg =7 mg #14 TAB Prescribed by Jae Robert MD on 05/29/17 Lorazepam (Ativan) 0.5 MG TABLET 0.5 MG PO AT BEDTIME for 3 nights then STOP # 3 TAB Prescribed by Jae Robert MD on 05/29/17 Sertraline HCl (Zoloft) 100 MG TABLET 100 MG PO DAILY depression and anxiety # 14 TAB Prescribed by Jae Robert MD on 05/29/17 Scheduled PRN Medications Gabapentin 300 MG CAPSULE 600 MG PO AT BEDTIME PRN INSOMNIA #30 CAP Prescribed by Jae Robert MD on 05/29/17 Consequences of Psych Med Use: N/A Comment: N/A Lab Results: Laboratory Tests 09/22/17 1614: Urine Opiates Screen < 100, Methadone Screen < 40, Barbiturate Screen < 60, Ur Phencyclidine Scrn < 6.00, Amphetamines Screen < 100, U Benzodiazepines Scrn < 85, Urine Cocaine Screen < 50, Urine Cannabis Screen < 5.00 09/22/17 1544: Anion Gap 9, Estimated GFR > 60, BUN/Creatinine Ratio 10.0, Glucose 97, Calcium 9.4, CBC w Diff NO MAN DIFF REQ, RBC 4.77, MCV 90.2, MCH 30.6, MCHC 33.9, RDW 13.8, MPV 6.8 L, Gran % 57.6, Lymphocytes % 32.8, Monocytes % 8.2, Eosinophils % 0.9, Basophils % 0.5, Absolute Granulocytes 3.3, Absolute Lymphocytes 1.9, Absolute Monocytes 0.5, Absolute Eosinophils 0.1, Absolute Basophils 0, Serum Alcohol < 10.0 Toxicology Screen Completed? Yes Results: negative Symptoms of Use: N/A Past History Past Medical History Medical History: None/Denies Past Surgical History Surgical History R HIP REPLACEMENT Abuse/Trauma History Trauma History/Current Trauma: Denies Legal History Current Legal Status: on probation Have you ever been arrested? Yes Number of Arrests: [address] Dates: N/A [employer] He is on probation, however did not state the name of his probation office Psychosocial History Strengths/Capabilities: He has a supportive sister, that appears to care for his well being. He has good insight into his need for treatment and is motivated to attend. Physical Limitations (Interventions): None noted Psychiatric Treatment History Psych Treatment Psychiatric Treatment Yes Inpatient Treatment Yes Outpatient Treatment Yes Location of Treatment [facility] Reason for Treatment Depression and suicidal ideations Dates of Treatment CPS April 2017 and is current with [facility] Response to Treatment He has not been compliant with treatment and has been drinking periodically and not being honest with [facility]. Diagnosis by History: Unknown Risk Factors: SA/MH hospitalized, substance abuse, isolate/no social support, poor impulse control, male Substance Use/Abuse History Drug Use/Abuse minimum 12mo Hx Substances Used/Abused Yes Substance Used/Abused Alcohol First Use 12 years Last Used Thursday; September 18, 2017 How much used/taken "a pint and a half of [place] and a 6 pack." How often He states that he has been intermittently drinking while in [facility] For how long He has a long history of alcohol abuse Route of use oral Substance Abuse Treatment Substance Abuse Treatment Past Substance Abuse [place] Yes Inpatient Treatment Yes Outpatient Treatment Yes Location of Treatment [facility] Reason for Treatment He states he is in IOP for alcohol and mental health issues currently. He states that he has a history of attending a detox, many years ago, however did not give specifics. Dates of Treatment Current with IOP Response to Treatment He states that he has been drinking while he has been in IOP and has not disclosed that to them. Comments: N/A Sexual History Sexual Concerns: None noted Education History Highest Level of Education: high school/GED Preferred Learning Style: Unknown Current Mental Status Mental Status Orientation: Person, Place, Situation Affect: Depressed, Sad Speech: WNL Neuro-vegetative: Helpless, Sleep Disturbance, Decreased motivation Appearance Appearance- Dress/Hygiene: The patient was sitting on the bed, in hospital attire and appeared stated age and was neat and clean. Behaviors Thought Process: WNL Thought Content: WNL Memory: WNL Insight: WNL SI/HI Risk Assessment - Minimum 6mo History- Past Suicidal Ideation/Attempts Yes Current Suicidal Ideation/Att Yes Past Homicidal Ideation/Att: No Current Homicidal Ideation/Attempts No Degree of Intent: Plan, States Intent, He denies any history of suicide attempts. He reports that he has been having suicidal ideations and has a plan to drive his car into a tree and he is concerned that he will act on his thoughts. Danger To: Self Gravely Disabled: Poor Impulse Control Risk Factors: SA/MH hospitalized, substance abuse, isolate/no social support, poor impulse control, male Lethality Ratin Needs/Init TX Plan/Goals: Admit to the inpatient unit for safety and symtom stabilization. Work with provider on medication evaluation. Attend individual, group and family session. Work with treatment team to transition back to care in the community. AUDIT-C Questionnaire: AUDIT-C Questionnaire: Response Value ETOH use in the past year 2-4 times/month 2 # drinks typical/day 7-9 3 6 or > drinks per occasion Monthly 2 Total 7 DSM5/PS Stressors/Medical Prob Diagnosis' (DSM 5, Stressors, Medical): F32.9 Unspecified Depressive Disorder F10.20 Alcohol use Disorder Medical: Unremarkable Stressors: Legal- on probation and child support issues, Current GAF: 25 Comments: N/A
[2017-09-22 19:44] VITALS: BP 132/84
[2017-09-22 20:56] VITALS: BP 138/77
[2017-09-22 21:07] VITALS: BP 138/77
[2017-09-22 22:29] VITALS: BP 132/78
[2017-09-23] VITALS (10 sets, daily range): BP systolic 94–125; BP diastolic 62–77
--- NOTE | 2017-09-23 12:16 | CPS PROVIDER INIT ASMT PSYCH ---
Psychiatric Admission Estimator Paperboard Boxes's Note Reviewed: Yes Patient Seen and Examined: Yes Identifying Information: Esau is a 52-year-old white male Chief Complaint: Esau presented to the crisis intervention with a chief complaint of "I was thinking about driving a car into a tree Reaction to Hospitalization: The patient was admitted voluntarily History of Present Illness Onset of Illness: The patient was here in the inpatient psychiatric unit at [facility] back in April 2017. He was discharged to do the dual track intensive outpatient program. He has been attending the intensive outpatient program but has then relapsing to alcohol on and off. Circumstances Leading to Admission: The following is from manager pathology's note: "52-year-old male presenting to the ED, via ambulance and on a PEER for suicidal ideations. He reports that he has been experiencing worsening symptoms of depression and having thoughts to drive his car into a tree and was concerned that he would act on his thoughts. He reports that he has been feeling helpless and hopeless and sleeping too much. He was admitted to [facility] in April 2017 and transitioned to the evening [facility] at [place]. He states that he has not been consistent and was actually discharged from [facility] and readmitted. He states that he has been drinking alcohol throughout his treatment at [facility] and did not tell them. He states that he would relapse, when he had money to do so, with the last time being Monday September 18, 2017. He denies any drug use and his toxicology screen was negative. He states that besides the dual diagnosis [facility], he has never attended substance abuse specific treatment, with the exception of a detox "many years ago." He resides by himself and has not been working. He states that his sister and a friend have been supporting him. He states that he is not currently in a relationship and has one 17 year old child, that he does not see that often. He states that he owes back child support, from when he was in prison. He states that he was in prison for threatening, stalking and BOP and that he was released 03/24/2017, with 3 years of probation. He is not sure what would be most helpful, however is willing to go inpatient." Problem(s) Justifying Need for Admission: Increasing depression and thoughts of suicide with some specifics "driving car into a tree" Past Psychiatric History Past Diagnosis(es)- if any: Unspecified Depressive Disorder Alcohol Use Disorder General Anxiety Disorder Rule MDD, recurrent Past Precipitating Factors- if any: Relapse to alcohol, legal entanglements - Include inpatient and outpatient treatment Treatment History: The patient was most recently attending the dual track intensive outpatient program The patient was previously on the inpatient psychiatric unit from May 06, 2017 until May 29, 2017 History of Suicide Attempts or Gestures The patient denied history of actual suicide attempts. Substance Abuse History: Alcohol use disorder became a problem in his early 40s. His first drink was at age 15. 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 The patient's mother also has history of depression reportedly after her diagnosis with breast cancer. One of her sisters has alcohol use disorder. 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 - #1 Recognizing dangerous situations. - #2 Coping Skills. - #3 Basic information about quitting. Status of Tobacco Cessation Counseling: #1, #2 AND #3 Completed Cessation Med Status Nicotine Patch Ordered Alcohol Screening - ETOH screen POS if BAL >=80 or Audit-C>= M4/F3 Audit-C Score from Diag Assess: 7 Blood Alcohol Level: Laboratory Tests 09/22 1544 Toxicology Serum Alcohol (<10 MG/DL) < 10.0 Alcohol Use Screening Results: Pos per Audit C &/or BAL - If ETOH counseling indicated - the following topics are required. - #1 Express concern about the patient's - drinking at unhealthy levels, include informing - of national norms for moderate drinking: - men <= 14 drinks/week, max 4 drinks/occasion - women <= 7 drinks/week, max 3 drinks/occasion - #2 Providing feedback, including linking alcohol to - negative physical effects (liver injury, hypertension) - negative emotional effects (relationship problems and - depression) - negative occupational consequences (reduced work - performance) - #3 Advising the patient to abstain from alcohol or - to drink below national norms for moderate drinking - (as listed above). Status of ETOH Use Counseling: #1, #2 AND #3 Completed. Metabolic Screening - Screen if on a Neuroleptic Medication - Metabolic screening should include: - Blood Pressure, BMI, Glucose or Hgb A1c, & a - Lipid profile from within the past 365 days. Metabolic Screening ([X]) Not Applicable, patient not on a neuroleptic. Current Medications Exam and Plan Mental Status Examination Ambulation Status: The patient was steady on his feet Appearance: Patient is sporting a lenz. Attitude towards examiner: He was calm and cooperative and friendly. Psychomotor activity: Showed normal psychomotor activity. Behavior: Patient did not show any bizarre or abnormal behaviors. Quality of speech: The patient spoke at a normal pace, there was no pressure, and there was no slurring of words. Affect: Patient showed a good range of affect. Mood: Patient reported that his mood has been down lately. Suicidal Ideation: He denied thoughts of suicide today. Homicidal Ideation: He denied thoughts of violence or homicide today. Hallucinations: He denied hallucinations. Paranoid/Delusional Material: He denied feeling paranoid, there were no delusions during the interview. Difficulties with thought organization: He did not seem to have difficulties with thought organization and he was coherent. Insight: He showed partial insight. Judgment: Showed good judgment in hypothetical situations. Seems that his judgment is very dependent on his sobriety. Orientation: Esau was alert and oriented to time, place, and person. Cognition: There were no apparent difficulties with information processing, attention, or concentration. Memory Function: There was no apparent deficits in his short-term memory. Estimate of intellectual functioning: Esau seemed to be of average intelligence. Assets/Strengths Patient Identified Assets/Strengths: Esau is likable, social, mental resilience. Impression/Plan Impression and Plan: 52-year-old white male who returns to the inpatient psychiatric unit after relapsing to alcohol use while he was in the intensive outpatient program at [facility]. Patient was admitted because he voiced thoughts of thinking about driving his car into a tree. - Include all active medical diagnosis that require tx DSM 5 Diagnosis(es): Unspecified depressive disorder to rule out major depressive disorder, recurrent, generalized anxiety disorder alcohol use disorder - Initial Tx Plan for Active Psych & Medical Conditions Treatment Plan: Inpatient psychiatric care with safety checks every 15 minutes Continue CIWA protocol every 4 hours while awake Increase Lexapro to 20 mg every morning and Change gabapentin to 300 mg in the morning 300 mg in the afternoon and 600 mg at bedtime Increase that as needed doses of gabapentin to 400 mg every 6 hours as needed for anxiety Biopsychosocial assessment by high school social studies tutor, collateral information, and aftercare planning in Nursing assessments, vital signs, and patient education Group therapy, milieu therapy, and activity therapy, and acupuncture - Factors that would help patient function - in a less restrictive setting. Factors: The patient will be discharge once his detoxification is safely concluded and if he continues to deny thoughts of suicide over the next couple of days.
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
--- NOTE | 2017-09-23 16:13 | SOCIAL WORKER SOCIAL HX PSYCH ---
Social History Basic Assessment Insurance Authorization: Insurance #1: Insurance name: DAVID Deshpande [employer] Phone number: Policy number: [id number] Group number: DAVID Deshpande Authorization number: Curr Source of Income/Entitlements: No current source of income Present Problem: The following was obtained from the diagnostic assessment by Gale Berrios LCSW. Patient's Quote: "Depression, I was thinking about driving car into a tree." Present Illness: The patient is a 52 year old, male presenting to the ED, via ambulance and on a PEER for suicidal ideations. He reports that he has been experiencing worsening symptoms of depression and having thoughts to drive his car into a tree and was concerned that he would act on his thoughts. He reports that he has been feeling helpless and hopeless and sleeping too much. He was admitted to [facility] in [place] 2017 and transitioned to the evening [facility] [place]. He states that he has not been consistent and was actually discharged from [facility] and readmitted. He states that he has been drinking alcohol throughout his treatment at [facility] and did not tell them. He states that he would relapse, when he had money to do so, with the last time being Monday September 18, 2017. He denies any drug use and his toxicology screen was negative. He states that besides the dual diagnosis [facility], he has never attended substance abuse specific treatment, with the exception of a detox "many years ago." He resides by himself and has not been working. He states that his sister and a friend have been supporting him. He states that he is not currently in a relationship and has one 17 year old child, that he does not see that often. He states that he owes back child support, from when he was in care home. He states that he was in care home for threatening , stalking and BOP and that he was released 03/24/2017, with 3 years of probation. He is not sure what would be most helpful, however is willing to go inpatient, if that is what the psychiatrist recommends. BRAVO spoke to the patients sister, Berna Lyles ([phone]), for collateral information. Berna reports that the patient has not been doing well and that he needs help. She reports that he has had a lack of motivation and has not been taking care of himself or attending work. Berna believes that the patient will be evicted, as he has not been working. Berna reports that he is depressed and that he needs help. She reports that he was not attending IOP, as he should and that he needs to be back in the hospital. Primary Language? Qatari Language(s) Spoken At Home: Qatari Living Situation Other Living Arrangement: homeless, pt was evicted from his apartment. Feel Safe Where You Are Living Yes Feel Safe in Relationships? Yes Allergies - Coded Allergies: NO KNOWN ALLERGIES (NONE 05/08/17) Current Medications - Scheduled PRN Medications Gabapentin 300 MG CAPSULE 600 MG PO AT BEDTIME PRN INSOMNIA #30 CAP Prescribed by Jae Robert MD on 05/29/17 Last Taken: 05/29/17 Discontinued Medications Aripiprazole (Abilify) 5 MG TABLET 1 TAB PO DAILY with 2 mg = 7mg daily #14 TAB Discontinued reason: Pt Decision, not taking Last Taken: 05/29/17 Aripiprazole (Abilify) 2 MG TABLET 1 TAB PO DAILY with 5 mg =7 mg #14 TAB Discontinued reason: Pt Decision, not taking Last Taken: 05/29/17 Lorazepam (Ativan) 0.5 MG TABLET 0.5 MG PO AT BEDTIME for 3 nights then STOP # 3 TAB Discontinued reason: Per Doctor Decision Last Taken: 05/29/17 Sertraline HCl (Zoloft) 100 MG TABLET 100 MG PO DAILY depression and anxiety # 14 TAB Discontinued reason: Changed to different med Last Taken: 05/29/17 Past History Past Medical History Neurological: NONE EENT: NONE Cardiovascular: NONE Respiratory: NONE Gastrointestinal: NONE Hepatic: NONE Renal: NONE Musculoskeletal: RIGHT HIP REPLACEMENT ANK Psychiatric: alcohol dependence, depression Endocrine: NONE Blood Disorders: NONE Cancer(s): NONE LACE FINISHER/Reproductive: NONE Past Surgical History Surgical History: non-contributory /Family History Place/Country of Origin: [place], [place] Childhood Family Constellation: Pt grew up with his mother, father, and 2 sisters Primary Childhood Caretakers: father, mother Family Life During Childhood: The pt reports his childhood as "kind and fun". DCF Involvement? No Mother's Age (Current/): 63 Relationship w/Mother: The pt reports his mother was very "kind" and "soft", stating "I liked that." The pt's mother is Father's Age (Current/): 73 Relationship w/Father: The pt reports his father was "more magallno" but had a good relationship. Father is . Any Sibling(s)? Yes Sibling's Gender(s)/Age(s): female Sibling 1:, female Sibling 2: Relationship w/Sibling(s): The pt reports having a good relationship with both of his sisters and identifies them as his biggest supports. Relationship w/Friends: The pt reports having positive peer relationships; reports having a childhood friend and a close female friend Family Psych/Sub Abuse/Add Hx: Pt denies family hx of SA or mental health Abuse/Trauma History Trauma History/Current Trauma: Denies Legal History Legal Guardian/Address/Phone: N/A Current Legal Status: none Pending Court Dates: none reported Have you ever been arrested Yes Number of Arrests: 6 Hx of Juvenile Legal Charges? Yes If Yes: unknown Hx of Adult Legal Charges? Yes If Yes: felony List/Date Most Recent Lgl Chgs: 2005 DUI 2006 Violation of probation 2017 Stalking, Threatening, Breach of Peace, Harrasment Chgs/Dts/Incarcerations/Sentnc 2005 - incarcerated 4 mo. for DUI 2007 - Incarcerated 4 mo for violation of probration (driving with a suspended license) 2017 Incarcerated for 10 mo for threatening, stalking, breach of peace, and harrassment Civil Proceedings: N/A Domestic Relations Court: Threatening, stalking, harrassment - on probation Child Protective Serv Involvmnt n/a [employer] [place]ney Psychosocial History Primary Support System: sibling(s) Strengths/Capabilities: He has a supportive sister, that appears to care for his well being. He has good insight into his need for treatment and is motivated to attend. Weaknesses: limited support, poor impulse control. Physical Limitations (Interventions): None noted Last Physical: 2017 History of Seizures? No History of Blackouts? No ADL Limitations: n/a Emma/Social/Peer Relations Pt reports having positive peer relationships Meaningful Activities: The pt reports prior to depression he enjoyed fishing, hunting, and fishing Childhood Caodaism: Pentecostalism Current Scientology Affiliation: Pentecostalism Is Spirituality Important to You? "yes" pt reports that hinduism is more important because it is more "structured " and he enjoys that. Patient's Ethnicity: Qatari, Samoan, Vincentian, Azerbaijani Cultural/Ethnic Issues: none reported Are There Developmental Issues? No Milestones Achieved: fine motor, gross motor Psychiatric Treatment History Psych Treatment Inpatient Treatment Yes Outpatient Treatment Yes Location of Treatment [facility] Reason for Treatment Depression and suicidal ideations Dates of Treatment [facility] April 2017 and is current with [facility] Response to Treatment He has not been compliant with treatment and has been drinking periodically and not being honest with IOP. Treatment of Prior Episodes: n/a Diagnosis: Unknown Psychodynamic Issues: The pt has recently been released from jail, limited support, and housing concerns Risk Factors: SA/MH hospitalized, substance abuse, isolate/no social support, poor impulse control, male, limited support Substance Use/Abuse History Drug Use/Abuse:Min 12 mo hx Substance Used/Abused Alcohol First Use 12 years Last Used Thursday; September 18, 2017 How much used/taken "a pint and a half of [place] and a 6 pack." How often He states that he has been intermittently drinking while in IOP For how long He has a long history of alcohol abuse Route of use oral Have Had Periods of Sobriety? Yes Explain: pt reports his longest sobriety was "a little over a year" Relapse History? Yes Have You Ever Attended AA? Yes Do You Attend AA Currently? No Do You Have a Sponsor? No Symptoms of Use: N/A Substance Abuse Treatment Substance Abuse Treatment Inpatient Treatment Yes Outpatient Treatment Yes Location of Treatment [facility], 2018 Reason for Treatment He states he is in IOP for alcohol and mental health issues currently. He states that he has a history of attending a detox, many years ago, however did not give specifics. Dates of Treatment Current with [facility] Response to Treatment He states that he has been drinking while he has been in [facility] and has not disclosed that to them. Sexual History Sexually Active No Sexual Orientation Heterosexual Sexual Concerns: None noted Education History Highest Level of Education: high school/GED Highest Grade Completed: High school Vocational Year Completed: n/a Number of College Years: 0 College Degree/Major: n/a Other Degree(s): n/a Preferred Learning Style: visual, auditory, experiential HX of Learning Difficulties: None reported Barriers to Learning: reports "I think I had add" Special Communication Needs: None reported Employment History No. of Jobs in Last 5 Years: 1 Attendance: Normal Performance: Good Comments: The pt reports prior to incarceration he worked at a [employer] and enjoyed it. Also, the pt notes that he did a good job with good attendance. History Have You Been in The ? No Current Mental Status Mental Status Orientation: Person, Place, Situation Affect: WNL Speech: WNL Neuro-vegetative: WNL Appearance Appearance- Dress/Hygiene: Pt was dressed in his own clothing and god hygiene. Behaviors Thought Process: WNL Thought Content: WNL Memory: WNL Insight: WNL SI/HI Risk Assessment Past Suicidal Ideation/Attempts Yes Current Suicidal Ideation/Att No Past Homicidal Ideation/Att: No Current Homicidal Ideation/Attempts No Degree of Intent: None Danger To: Self Gravely Disabled: Poor Impulse Control Risk Factors: High Anxiety/Distress, Isolated/no social suppor, Lives alone, Lack of concern outcome, Male, Poor impulse control, Substance Abuse Lethality Ratin - Conclusion and Recommendations for treatment - and discharge planning Summary: Crisis was able to meet with pt and complete the social assessment. Pt is settling in to CPS and states he is "overwhelmed" with what the next step will be since he has been evicted from where he was living. Pt is not currently SI or HI.
--- NOTE | 2017-09-23 17:29 | SOCIAL WORKER PROG NOTE PSYCH ---
Social Work Progress Note Progress Note This insurance underwriter met with patient. He shared that he received an eviction notice and was expected to move out today. He stated that he has been unable to return to his apartment due to wanting to avoid interactions with the landlords. Patient stated that he has attended some IOP sessions, however, has not engaged fully and has not been successful in completing an IOP. He expressed fears that this would ultimately lead to a violation of probation. Patient stated that he has been using alcohol and is agreeable to needing a higher level of care. Patient signed KINA's for inpatient programs as well as his jail officer. He stated that he would speak with his sister about a family meeting as well as the possibility of staying with her temporarily until he enters an inpatient program. If this is not possible, he is agreeable to a referral to [facility] ([facility] Patient denied SI/HI/AH/VH.
[2017-09-24 07:39] VITALS: BP 117/68
[2017-09-24 07:41] VITALS: BP 117/68
--- NOTE | 2017-09-24 12:24 | CP SOUTH PROGRESS NOTE PSYCH ---
Psych (Inpt) Progress Note Progress Note Treatment team (FRED, RN, OTR/L & Therapy staff, Psychiatrist) discussed the Pt. 's progress, treatment plan, and aftercare plans. Date Time Temp Pulse B/P 09/24 1228 65 114/70 09/24 0741 97.5 66 117/68 09/24 0739 97.5 66 117/68 09/23 1957 98.3 84 104/64 Mental Status Examination: The patient was steady on his feet. Patient is sporting a lenz. He was calm and cooperative and friendly. Showed normal psychomotor activity. Patient did not show any bizarre or abnormal behaviors. The patient spoke at a normal pace, there was no pressure, and there was no slurring of words. Patient showed a good range of affect. Patient reported that his mood has been down lately. He denied thoughts of suicide today. He denied thoughts of violence or homicide today. He denied hallucinations. He denied feeling paranoid, there were no delusions during the interview. He did not seem to have difficulties with thought organization and he was coherent. He showed partial insight. Showed good judgment in hypothetical situations. Seems that his judgment is very dependent on his sobriety. Esau was alert and oriented to time, place, and person. There were no apparent difficulties with information processing, attention, or concentration. There was no apparent deficits in his short-term memory. Esau seemed to be of average intelligence. Assessment: 52-year-old white male who returns to the inpatient psychiatric unit after relapsing to alcohol use while he was in the intensive outpatient program at [facility]. Patient was admitted because he voiced thoughts of thinking about driving his car into a tree. Diagnosis(es): Unspecified depressive disorder to rule out major depressive disorder, recurrent, generalized anxiety disorder alcohol use disorder Treatment Plan: The patient reported that he wanted to go back on Campral I had a long discussion with him about comparisons between the count problem the naltrexone and he did not seem to have been on the naltrexone before. I explained to him that the biggest advantage for the naltrexone its once daily dosing as opposed to 3 times a day with Campral Start naltrexone 25 mg today and 50 mg starting tomorrow morning D/C CIWA Continue Lexapro 20 mg every morning gabapentin 300 mg in the morning 300 mg in the afternoon and 600 mg at bedtime gabapentin to 400 mg every 6 hours as needed for anxiety to rule out major depressive disorder, recurrent, generalized anxiety disorder alcohol use disorder - Initial Tx Plan for Active Psych & Medical Conditions Treatment Plan: Inpatient psychiatric care with safety checks every 15 minutes Continue CIWA protocol every 4 hours while awake Increase Lexapro to 20 mg every morning and Change gabapentin to 300 mg in the morning 300 mg in the afternoon and 600 mg at bedtime Increase that as needed doses of gabapentin to 400 mg every 6 hours as needed for anxiety Biopsychosocial assessment by director social service, collateral information, and aftercare planning in Nursing assessments, vital signs, and patient education Group therapy, milieu therapy, and activity therapy, and acupuncture - Factors that would help patient function - in a less restrictive setting. Factors: The patient will be discharge once his detoxification is safely concluded and if he continues to deny thoughts of suicide over the next couple of days.
[2017-09-24 12:28] VITALS: BP 114/70
[2017-09-24 16:17] VITALS: BP 108/65
--- NOTE | 2017-09-24 16:39 | SOCIAL WORKER PROG NOTE PSYCH ---
Social Work Progress Note Progress Note This caption writer met with patient. He described his mood as "fair" and denied SI/HI/ AH/VH. This caption writer assisted patient in completing the referral forms for [facility]. He reports ongoing interest in going to a rehab. A message was left for Dr. Robert regarding request for PPD from some rehab programs.
[2017-09-24 20:16] VITALS: BP 123/75
[2017-09-25 07:43] VITALS: BP 115/73
--- NOTE | 2017-09-25 07:52 | CP SOUTH PROGRESS NOTE PSYCH ---
Psych (Inpt) Progress Note Progress Note Treatment team (FRED, RN, OTR/L , Psychiatrist) discussed the Pt.'s progress, treatment plan, and aftercare plans. Vital Signs Date Time Temp Pulse B/P 09/25 1223 63 114/69 09/25 0743 97.0 69 115/73 09/25 2015 98.7 83 123/75 Mental Status Examination: The patient seemed more talkative than usual. The patient is known to me from an extended stay at Inpatient [facility]ry previously. He showed normal psychomotor activity. Patient did not show any bizarre or abnormal behaviors. There was mild pressure in his speech, Patient showed bright affect. Patient reported that his mood has been "good". He denied thoughts of suicide today. He denied thoughts of violence or homicide today. He denied hallucinations. He denied feeling paranoid, there were no delusions during the interview. He did not seem to have difficulties with thought organization although he was a little bit tangential today. Esau was alert and oriented to time, place, and person. There were no apparent difficulties with information processing, attention, or concentration. Assessment: 52-year-old white male who returns to the inpatient psychiatric unit after relapsing to alcohol use while he was in the intensive outpatient program at [facility]. Patient was admitted because he voiced thoughts of thinking about driving his car into a tree. Esau has been denying thoughts of suicide since his arrival to the inpatient psychiatric unit. Today his presentation was of a hypomanic flavor. We will keep an eye on this. Diagnoses (Updated 09/25/2017): Based on today's presentation, I am waiting suspicious that the patient may have an unspecified bipolar disorder not unspecified depressive disorder to rule out bipolar 2 or maybe bipolar 1 alcohol use disorder Rule out alcohol-induced mood disorder with onset of symptoms during intoxication as well as during withdrawal Treatment Plan: naltrexone 50 mg daily in the morning Continue Lexapro 20 mg every morning for the time being (we will keep a watchful eye on the patient's suspicious hypomanic-like symptoms) gabapentin 300 mg in the morning 300 mg in the afternoon and 600 mg at bedtime gabapentin to 400 mg every 6 hours as needed for anxiety
--- NOTE | 2017-09-25 09:35 | SOCIAL WORKER PROG NOTE PSYCH ---
Social Work Progress Note Progress Note Faxed clinical to [facility] and [facility] (with [facility] OPER[facility] referral form)- Fax confirmation/KINA's in chart. Faxed clinical to [facility] - Fax confirmation and K[facility] in chart. Informed Terrie Brandt LCSW - clinical needs to be Faxed to: [facility] - patient has to call to do screening first. [facility]
[2017-09-25 12:23] VITALS: BP 114/69
--- NOTE | 2017-09-25 13:32 | SOCIAL WORKER PROG NOTE PSYCH ---
Social Work Progress Note Progress Note This script writer met with patient. He described his mood as "blah" and is finding groups to be helpful. Patient stated that he has not yet contacted his sisters, identifying lack of motivation as the barrier. This script writer offered to assist him with the call and he responded that he would call this before lunch today. Patient denied SI/HI/AH/VH. Patient stated, "I wish I wasn't alive - but by natural . I wish I didn't wake up in the morning." Patient denied any thoughts or plans to attempt suicide and stated that he would immediately inform staff should thoughts or plans arise. He stated that he feels safe on this unit. This script writer informed patient of [facility], to which he was agreeable to a referral. He was also informed of [facility] and agreeable to sign a KINA.
--- NOTE | 2017-09-25 16:25 | SOCIAL WORKER PROG NOTE PSYCH ---
Social Work Progress Note Progress Note The services requested require additional review. You will be contacted regarding the status of this request if further information is needed. An authorization decision will be made within the required timeframes and details of that decision may be found under the member's authorization history. Member Name Member ID Member Subscriber Name Subscriber ID DAV TOVAR [id number] DAV TOVAR [id number] Pended Authorization # Client Authorization # Type of Request [id number] CONCURRENT Date of Admission/ Start of Services Requested From Submission Date 09/22/2017 09/25/2017 09/25/2017 Level of Service Type of Service Level of Care Type of Care INPATIENT/HLOC [facility] Reason Code P76 Provider Name & Address Provider ID Provider Alternate ID NPI # for Authorization KRYSTAL WELLS [id number] N/A [address] [facility] [id number]
[2017-09-25 16:31] VITALS: BP 105/64
[2017-09-25 19:56] VITALS: BP 117/66
[2017-09-26 07:54] VITALS: BP 104/75
--- NOTE | 2017-09-26 12:03 | CP SOUTH PROGRESS NOTE PSYCH ---
Psych (Inpt) Progress Note Progress Note Include the following elements, when applicable: Involvement in the active treatment of the patient with behavioral observations of the patient and the patient's response to the treatment. Review of the ongoing treatment process in the context of the treatment plan. Indication of how multi-disciplinary staff members are carrying out the treatment plan. Plans for future interventions and recommendations for revision of the treatment plan. Liaison with other physicians/providers. Progress Note: Pt notes he is "pretty good" today. Slept well. Possibly visit by his sister and friend today which he is looking forward to. Denies SI or HI. Current Medications Sig/Bess Start time Last Medication Dose Route Stop Time Status Admin Escitalopram Oxalate 20 MG DAILY 09/24 899 AC 09/26 PO 0839 Folic Acid 1 MG DAILY 09/23 1453 AC 09/26 PO 09/27 1600 0839 Gabapentin 400 MG .STK-MED ONE 09/25 1821 DC PO 09/25 1822 Gabapentin 400 MG 0800,1400 09/25 1400 AC 09/26 PO 0839 Gabapentin 600 MG AT BEDTIME 09/23 2100 AC 09/25 PO 2155 Gabapentin 300 MG 0800,1400 09/23 1400 DC 09/25 PO 0746 Gabapentin 400 MG Q6-PRN PRN 09/23 1230 AC 09/25 PO 1908 Multivitamins 1 TAB DAILY 09/24 09 AC 09/26 PO 09/30 1600 0839 Naltrexone HCl 50 MG 0809/25 0800 AC 09/26 PO 0839 Thiamine HCl 100 MG DAILY 09/23 1452 AC 09/26 PO 09/27 1800 0839 Laboratory Tests 09/23 1800 Chemistry Total Bilirubin Cancelled Direct Bilirubin Cancelled AST Cancelled ALT Cancelled Alkaline Phosphatase Cancelled Total Protein Cancelled Albumin Cancelled Vital Signs Date Time Temp Pulse Resp B/P B/P Pulse O2 O2 Flow FiO2 Mean Ox Delivery Rate 09/26 075 97.1 73 104/75 09/25 195 97.2 79 117/66 09/25 1631 77 105/64 08 1223 63 114/69 MSE General appearance: good hygiene and grooming; Attitude: cooperative; Eye contact: appropriate; Movement: no psychomotor agitation or slowing; Speech: nl fluency, nl rate/rhythm, nl volume, nl prosody; Mood: "pretty good" Affect: just slightly irritable, flat, appropriate, constricted, non-labile, congruent; Thought process: linear and goal-directed; Thought content: denied SI or HI, no paranoid ideation; Perception: denied hallucinations- auditory, visual, does not appear to be responding to internal stimuli; I/J: limited A/P: Pt with depression, AUD, and SI now resolved. -Continue current medication regimen -Encourage integration into the milieu
[2017-09-26 12:12] VITALS: BP 114/68
[2017-09-26 15:53] VITALS: BP 103/68
[2017-09-26 20:29] VITALS: BP 118/73
[2017-09-27 07:35] VITALS: BP 117/71
[2017-09-27 12:10] VITALS: BP 111/74
--- NOTE | 2017-09-27 14:58 | CP SOUTH PROGRESS NOTE PSYCH ---
Psych (Inpt) Progress Note Progress Note Include the following elements, when applicable: Involvement in the active treatment of the patient with behavioral observations of the patient and the patient's response to the treatment. Review of the ongoing treatment process in the context of the treatment plan. Indication of how multi-disciplinary staff members are carrying out the treatment plan. Plans for future interventions and recommendations for revision of the treatment plan. Liaison with other physicians/providers. Progress Note: Pt declined to be seen privately and was seen in group room. Notes "OK" today. Denies SI or HI. Current Medications Sig/Bess Start time Last Medication Dose Route Stop Time Status Admin Escitalopram Oxalate 20 MG DAILY 09/24 09 AC 09/27 PO 0818 Folic Acid 1 MG DAILY 09/23 1453 AC 09/27 PO 09/27 1600 0818 Gabapentin 400 MG 0800,1400 09/25 1400 AC 09/27 PO 1419 Gabapentin 600 MG AT BEDTIME 09/23 2100 AC 09/26 PO 2113 Gabapentin 400 MG Q6-PRN PRN 09/23 1230 AC 09/27 PO 1142 Ibuprofen 600 MG Q8P PRN 09/26 1530 AC PO Multivitamins 1 TAB DAILY 09/24 0900 AC 09/27 PO 09/30 1600 0819 Naltrexone HCl 50 MG 0800 09/25 0800 AC 09/27 PO 0819 Thiamine HCl 100 MG DAILY 09/23 1452 AC 09/27 PO 09/27 1800 0819 Vital Signs Date Time Temp Pulse Resp B/P B/P Pulse O2 O2 Flow FiO2 Mean Ox Delivery Rate 09/27 1210 71 111/74 09/27 0735 96.7 75 117/71 09/26 2028 97.4 77 118/73 09/26 1553 76 103/68 MSE General appearance: good hygiene and grooming; Attitude: cooperative; Eye contact: appropriate; Movement: no psychomotor agitation or slowing; Speech: nl fluency, nl rate/rhythm, nl volume, nl prosody; Mood: "OK" Affect: extremely flat, appropriate, constricted, non-labile, congruent; Thought process: linear and goal-directed; Thought content: denied SI or HI, no paranoid ideation; Perception: denied hallucinations- auditory, visual, does not appear to be responding to internal stimuli; I/J: limited A/P: Pt with depression, AUD, and SI now resolved. -Continue current medication regimen -Encourage integration into the milieu
[2017-09-27 15:28] VITALS: BP 113/77
[2017-09-27 20:04] VITALS: BP 104/61
[2017-09-28 07:46] VITALS: BP 120/86
[2017-09-28 12:28] VITALS: BP 121/82
--- NOTE | 2017-09-28 14:20 | CP SOUTH PROGRESS NOTE PSYCH ---
Psych (Inpt) Progress Note Progress Note I reviewed Dr. Vyas's notes for the weekend of September 26 and 2017. Treatment team (IRON WORKER, RN, OTR/L , Psychiatrist) discussed the Pt.'s progress, treatment plan, and aftercare plans. Vital Signs: Blood pressure 121/82 mmHg Pulse 72 beats per minutes and temperature 97.3F Mental Status Examination: The patient seemed to have minor difficulties with attention and concentration. He was talkative but not pressured. He showed normal psychomotor activity. Patient did not show any bizarre or abnormal behaviors. Patient showed bright affect. Patient reported that his mood has been "good". He denied thoughts of suicide, denied thoughts of violence or homicide, and denied hallucinations. He denied feeling paranoid, there were no delusions during the interview. He did not seem to have difficulties with thought organization although he was a little bit tangential today. Esau was alert and oriented to time, place, and person. Assessment: Esau is a 52-year-old white male who returns to the inpatient psychiatric unit after relapsing to alcohol use while he was in the intensive outpatient program at [facility]. Patient was admitted because he voiced thoughts of thinking about driving his car into a tree. Esau has been denying thoughts of suicide since his arrival to the inpatient psychiatric unit. Today his presentation was of a hypomanic flavor. We will keep an eye on this. Diagnoses (Updated 09/25/2017): Based on today's presentation, I am waiting suspicious that the patient may have an unspecified bipolar disorder not unspecified depressive disorder to rule out bipolar 2 or maybe bipolar 1 alcohol use disorder Rule out alcohol-induced mood disorder with onset of symptoms during intoxication as well as during withdrawal Treatment Plan Update: Continue naltrexone 50 mg daily in the morning Continue Lexapro 20 mg every morning for the time being gabapentin 300 mg in the morning 300 mg in the afternoon and 600 mg at bedtime gabapentin to 400 mg every 6 hours as needed for anxiety
[2017-09-28 15:58] VITALS: BP 118/75
--- NOTE | 2017-09-28 17:59 | SOCIAL WORKER PROG NOTE PSYCH ---
Social Work Progress Note Progress Note This functional tester typewriters met with patient. He described his mood as "ok" and denied SI/HI/AH /VH. Patient was provided with phone numbers to rehab programs and agreed to call them this afternoon. He was informed that David called and scheduled a phone screening for 09/29/17 at 10am with Mari ([phone]). Patient accepted this screening and a vm was left for Mari to confirm.
[2017-09-28 20:02] VITALS: BP 120/64; BP 95/62
[2017-09-29 08:15] VITALS: BP 130/73
--- NOTE | 2017-09-29 10:53 | SOCIAL WORKER PROG NOTE PSYCH ---
Social Work Progress Note Progress Note DAV TOVAR [id number] 1965 DAV CAMPJoshua [id number] Pended Authorization # Client Authorization # Type of Request [id number] CONCURRENT Date of Admission/ Start of Services Requested From Submission Date 09/22/2017 09/29/2017 09/29/2017
[2017-09-29 12:36] VITALS: BP 121/75
--- NOTE | 2017-09-29 13:27 | CP SOUTH PROGRESS NOTE PSYCH ---
Psych (Inpt) Progress Note Progress Note Treatment team (FRED, RN, OTR/L , Psychiatrist) discussed the Pt.'s progress, treatment plan, and aftercare plans. Vital Signs: Blood pressure: 121/75 mmHg; Pulse: 70 beats per minute; Temperature 97.3F Mental Status Examination: alert and oriented to time, place, and person. minor difficulties with attention and concentration, less talkative today showed normal psychomotor activity, did not show any bizarre or abnormal behaviors. Patient showed bright affect. Patient reported that his mood has been "good". He denied thoughts of suicide, denied thoughts of violence or homicide, and denied hallucinations. He denied feeling paranoid, there were no delusions during the interview. He did not seem to have difficulties with thought organization although he was a little bit tangential today. Assessment: Esau is a 52-year-old white male who returns to the inpatient psychiatric unit after relapsing to alcohol use while he was in the intensive outpatient program at [facility]. Patient was admitted because he voiced thoughts of thinking about driving his car into a tree. Esau has been denying thoughts of suicide since his arrival to the inpatient psychiatric unit. Today his presentation was of a hypomanic flavor. We will keep an eye on this. Diagnoses (Updated 09/25/2017): Based on today's presentation, I am waiting suspicious that the patient may have an unspecified bipolar disorder not unspecified depressive disorder to rule out bipolar II alcohol use disorder Rule out alcohol-induced mood disorder with onset of symptoms during intoxication as well as during withdrawal Treatment Plan Update: Continue naltrexone 50 mg daily in the morning Continue Lexapro 20 mg every morning for the time being gabapentin 300 mg in the morning 300 mg in the afternoon and 600 mg at bedtime gabapentin to 400 mg every 6 hours as needed for anxiety
[2017-09-29 16:40] VITALS: BP 113/72
--- NOTE | 2017-09-29 18:26 | SOCIAL WORKER PROG NOTE PSYCH ---
Social Work Progress Note Progress Note 10:45am: this senior grant writer left a vm for patient's correction officer reformatory, Chandler Denney. Another vm was left, in response to his return call, at 1:18pm. 11am: Patient completed a phone screening with Mari at [facility]. 11:26am: This senior grant writer received call from Mari at [facility] stating that they would not accept the patient as they did not feel he need a rehab/inpatient program due to minimal substance use. This senior grant writer met with patient. He was informed of the call from [facility]. Patient continues to refuse a family meeting and is not willing to accept a referral to [facility] as he would like to discuss this with his sister first. Patient described his mood as "lousy" due to not knowing where he will go after [facility] (treatment and housing). He reported no motivation. While he denied SI, he stated, "I wish " which he associates with not knowing where he will live or pursue treatment. Patient stated that he feels safe on this unit and would immediately inform staff if feeling unsafe or has other concerns. Patient stated that he would continue to call inpatient/rehab programs.
[2017-09-29 20:09] VITALS: BP 118/64
[2017-09-30 07:55] VITALS: BP 108/79
--- NOTE | 2017-09-30 09:14 | CP SOUTH PROGRESS NOTE PSYCH ---
Psych (Inpt) Progress Note Progress Note Treatment team (FRED, RN, OTR/L, Psychiatrist) discussed the Pt.'s progress, treatment plan, and aftercare plans. Vital Signs: Date Time Temp Pulse B/P B/P O2 O2 Flow FiO2 09/30 0755 97.0 75 108/79 09/29 2008 97.5 77 118/64 09/29 1640 78 113/72 Mental Status Examination: Esau was alert and oriented to time, place, and person. He showed normal psychomotor activity, did not show any bizarre or abnormal behaviors. Esau had minor difficulties with attention and concentration. He was not that talkative today. Patient showed bright affect. Patient reported that his mood has been "good". He denied thoughts of suicide, denied thoughts of violence or homicide, and denied hallucinations. He denied feeling paranoid, there were no delusions during the interview. He did not seem to have difficulties with thought organization although he was a little bit tangential today. Assessment Update: Esau is a 52-year-old White male who was admitted to the inpatient psychiatric unit after relapsing to alcohol use while he was in the [facility]. Patient was admitted because he voiced thoughts of thinking about driving his car into a tree. Esau has been denying thoughts of suicide since his arrival to the inpatient psychiatric unit. Esau is interested in rehabilitation program. Unfortunately he was turned down by the [facility] Diagnoses (Last Updated 09/25/2017): Unspecified bipolar disorder Alcohol use disorder Treatment Plan Update: Continue Naltrexone 50 mg daily in the morning Continue Lexapro 20 mg every morning for the time being Continue Gabapentin 300 mg in the morning 300 mg in the afternoon and 600 mg at bedtime gabapentin to 400 mg every 6 hours as needed for anxiety
[2017-09-30 12:56] VITALS: BP 107/72
[2017-09-30 15:57] VITALS: BP 125/76
--- NOTE | 2017-09-30 18:00 | SOCIAL WORKER PROG NOTE PSYCH ---
Social Work Progress Note Progress Note This appeals writer called [facility] and left a vm for Yolanda at 12:48pm following up on the referral. This appeals writer spoke osiris Winkler at [facility], who requested updated clinical (MD progress notes). This appeals writer met with patient. He denied SI/HI/AH/VH and reported his mood as "a little more depressed" which he attributes to not knowing where he will stay or attend treatment upon discharge from [facility]. He refused to sign KINA's for [facility] and complete the referral forms. He was agreeable to this appeals writer contacting his sister, Nadya, about a family meeting and also requested that this appeals writer inform her about [facility]. This appeals writer spoke with Nadya Rody (sister, ) to invite to a family meeting. She refused, discussing all the energy she has put forth to support the patient. She was unwilling to allow him to stay with her upon discharge and suggested that he contact his other sister, Britany. Nadya was informed that referrals to rehabs had been made and also informed of the crisis and respite program. She was in agreement with a referral being made. She shared that the patient appeared to have a "shift" after his incarceration in which she noticed decreased confidence and described the patient as "broken." She believes something may have happened while he was incarcerated, however, she states that he has always denied this. Nadya thanked this appeals writer for the call and re-iterated that he cannot stay with her.
--- NOTE | 2017-09-30 18:18 | SOCIAL WORKER PROG NOTE PSYCH ---
Social Work Progress Note Progress Note Clinical was faxed to the following inpatient programs in interest of making a referral: -[facility] -[phone], 09/30/17, at 11:54am, demographics page sent to same fax # at 4:05pm -[facility] [phone], 09/30/17, at 12:01pm -[facility] - [phone], 09/30/17, 12:10pm -[facility] - [phone], 09/30/17, at 12:02pm On 09/29/17, Clinical had also been faxed by Lesley Harvey LCSW to the following: -[facility] - [phone], 09/29/17, at 1418 -[facility] [phone], 09/29/17, at 1424 (attempts to fax clinical to [facility] on 09/29/17 were unsuccessful)
[2017-09-30 19:34] VITALS: BP 131/81
--- NOTE | 2017-10-01 02:51 | CP SOUTH PROGRESS NOTE PSYCH ---
Psych (Inpt) Progress Note Progress Note Treatment team (FRED, RN, OTR/L, Psychiatrist) discussed the Pt.'s progress, treatment plan, and aftercare plans. Mental Status Examination: The patient did not seem excited about having a bed available at the [facility]. He was alert and oriented to time, place, and person. He denied feeling depressed, he denied feeling hopeless or worthless, and he denied wishing or thinking of suicide. He did show reasonable range of affect. He showed normal psychomotor activity, did not show any bizarre or abnormal behaviors. He denied thoughts of violence or homicide, and denied hallucinations. He denied feeling paranoid, there were no delusions during the interview. Assessment Update: Esau is a 52-year-old White male who was admitted to the inpatient psychiatric unit after relapsing to alcohol use while he was in the [facility]. Patient was admitted because he voiced thoughts of thinking about driving his car into a tree. Esau has been denying thoughts of suicide since his arrival to the inpatient psychiatric unit. Esau is interested in rehabilitation program. [facility] in [facility] call today saying that there is a bed available and that they have accepted Esau. Esau will be discharged directly to [facility] in [place]. Diagnoses (Last Updated 09/25/2017): Unspecified bipolar disorder Alcohol use disorder Treatment Plan Update: D/C to [facility] down by the [facility] Diagnoses (Last Updated 09/25/2017): Unspecified bipolar disorder Alcohol use disorder Treatment Plan Update: Continue Naltrexone 50 mg daily in the morning Continue Lexapro 20 mg every morning for the time being Continue Gabapentin 300 mg in the morning 300 mg in the afternoon and 600 mg at bedtime gabapentin to 400 mg every 6 hours as needed for anxiety DICTATED BY: Jakob EARLY,Jae
[2017-10-01 07:48] VITALS: BP 133/81
[2017-10-01] MEDS ORDERED: GABAPENTIN300 M2 PO (12:20)
[2017-10-01] MEDS ORDERED: NALTREXONE HCL50 M1 PO (12:20)
[2017-10-01] MEDS ORDERED: GABAPENTIN400 M2 PO (12:20)
[2017-10-01 12:23] VITALS: BP 117/80
[2017-10-01] MEDS ORDERED: LEXAPRO20 M1 PO (12:38)
--- NOTE | 2017-10-01 12:40 | Patient Discharge Instructions ---
Psych Discharge Inst General Discharge Information Reason for Admission: thoughts of suicide Psy Discharge Primary Diag+ Unspecified Depressive DO Unspecified Anxiety DO Psy Discharge Secondary Diag+ Alcohol Use Disorder Summary Tests/Major Procedures There were no significant lab abnormalities Studies Pending at DC: None Patient Instructions Contact Information Your Psychiatrist on [facility] was Jae Robert MD * If you are experiencing an emergency related to this hospitalization, please call [phone] to contact the treating psychiatrist or the psychiatrist-on- call. * To Request a copy of your medical records, please contact the Medical Records Department at [phone]. * To request results of studies pending at the time of discharge, please call [phone]. * Continue your Medications until directed to stop by your Healthcare provider. General Medication Information Please continue to take your new medications and your continued home medications , unless otherwise indicated on your discharge medication list, or unless directed by your MD or DEVOPS to stop them. Special Instructions Diet Regular Activity Normal - Tobacco Use Treatment Offered Post DC Medications Offered: Refused Tob Medication Tx Post DC Tobacco Treatment Plan: Refused Tobacco Tx Pgm - EtOH/Drug Use D/O Treatment Offered Post DC Medications Offered: Script Given-See Med List Post DC EtOH/SubAbuse TX Plan: Other SubAbuse/Dual Pgm Metabolic Screening Not Applicable, patient not on a neuroleptic. Advance Directives Does the Patient have Medical Advance Directives No/Refused further info Does Pt have Psychiatric Advance Directives? No/Refused further info Does Patient have a Designated Surrogate Decision Maker: No Information About Psychiatric Advance Directives Provided? Refused Discharge Plan Post Hospital Treatment Plan: [facility] in [place]
--- NOTE | 2017-10-01 15:07 | SOCIAL WORKER PROG NOTE PSYCH ---
Social Work Progress Note Progress Note This blurb writer received a call from Noreen at [facility] that they would be able to accept the patient into their rehab program. He would first stay at [facility] until an inpatient bed is avialable (approximately 1 week). She requested that this blurb writer obtain a preapproval for 3.7 by [facility]. Patient was informed that he was accepted to [facility] and would be able to discharge from [facility] to their [facility] today, with the plan to start their inpatient program when a bed is available (within a week). Patient was agreeable to this plan. This blurb writer spoke with Hemanth at [facility] ([phone]) and obtained the pre-approval for 3.7 for "co-occurring or regular". Hemanth suggested that [facility] and [facility] are explored. He was informed that the patient was not accepted at [facility]. This blurb writer spoke with Yolanda at [facility] who stated that a bed would not be avaialble until 10/23/17. This blurb writer informed Hemanth at [facility] of this and he was agreeable to pursuing [facility]. Patient expressed some anxiety about going to a new program and was agreeable to speaking with Noreen at [facility] to learn more about the program (28 days inpatient). This blurb writer and patient called Noreen. He learned about the program and had the opportunity to ask questions. Noreen was informed of the 3.7 pre-approval for co-occurring or regular. Patient denied SI/HI/AH/VH and is no longer wishing . He reports being motivated to go to [facility]. We called his sister, Nadya, together however was unable to reach her and left a vm. Patient stated that he will contact her. Patient also requested that this blurb writer contact his PO to inform of the referral. (A vm was left for PO Chandler Denney.) Patient stated that he felt comforttable and safe discharging today. He identified a safety plan in which he would immediately inform staff if feeling unsafe and call his sister or friend (Tatianna). This blurb writer spoke wit Noreen at [facility]: 1. 10/11 day contact: Dr. Robert, 2. Contact info for pending studies: Dr. Robert, 3. Plan for follow up care: [facility], 4. Primary physician or site designated for follow up care: [facility] Ren[facility] Palm[facility] stated that she has all needed documentation and only requests W10/ Patient Health Summary upon discharge. Noreen was also informed that this blurb writer obtained a 3.7 pre-approval from Hemanth at [facility] at 12:40pm today, 10/01/17. A ride through [employer] was scheduled - this blurb writer spoke with Marilyn at 3:14pm. She stated that the drive would call when en route. An ETA was not available at this time. Faxed Referral(s) Referred To: [facility] Documents sent: Health Summary, W10 Faxed to: Frank Sorto Fax #: [phone] Faxed by: Zita Brandt LCSW Date faxed: 10/01/17 Time Faxed: [phone]
[2017-10-01 15:50] VITALS: BP 112/68
--- NOTE | 2017-10-01 19:05 | IOP GROUP NOTE ---
See Addendum Psych (IOP) Group Note Date of Group or Service 10/01/17 Group: [facility] D Michelle Grp [id number] Suicidal Ideation No - If Yes, complete the suicide assessment form Behavior Appropriate, Calm Mental Status Alert, Oriented Response, Progress, Plan Group Topic: Relapse Prevention Group activity: Pts were asked to write an "open book", writing down positive things done for them and then positive things they have done for another. Positive thing pt received: "support from my fiancee during recovery". Positive thing pt did: "being there for my cousin during a tragic " (the cousin's son's suicide). Pts were supportive of each other. Plan: attend [facility] 3x weekly.
== END 2017-10-01 18:16 | disposition other institution (70) | DRG 754 ==
LOC: ERH 15:05 → ERHI 17:51 → CP SOUTH 17:51 → ENTRNSPT 20:40 → EDTRNSPT 20:53 → EDTRNSPTSTS 20:53 → CP SOUTH 20:56 → CMPTRNSPT 21:00 → CP SOUTH 09-23 08:40
PROVIDERS: Emergency Medicine
DX: F32.9 Major depressive disorder, single episode, unspecified (principal); F41.9 Anxiety disorder, unspecified; F10.10 Alcohol abuse, uncomplicated
CPT/HCPCS: 80307; 90853; 93005; 93010; G0480; J3490